=== PATIENT | male | born 1960 | race Caucasian/White ===

== ENCOUNTER 2017-01-25 10:55 | Inpatient (IN) | payer BC ==
[2017-01-25] MEDS ORDERED: NS 0.9% 1000 ML* 1,000 ML IV ONE (11:13)
[2017-01-25] MEDS ORDERED: Ondansetron INJ* 2 MG/ML VIAL IV ONE (11:13)
[2017-01-25] MEDS ORDERED: Morphine INJ* 4 MG/ML 1 ML CARPUJECT IV ONE (11:13)
[2017-01-25 11:54] LABS: Add Diff/Slide Review? Slide Review Added; Comments Flag Yes; Hematocrit 37 % (42-52); Hemoglobin 12.5 g/dl (14.0-18.0); Mean Corpuscular HGB Conc 34 g/dl (31-36); Mean Corpuscular Hemoglobin 35 pg (27-31); Mean Platelet Volume 7 um3 (7.4-10.4); Red Blood Count 3.53 10^6/ul (4.0-5.4); Red Cell Distribution Width 14 % (10.5-15); White Blood Count 10.4 10^3/ul (3.5-10.8)
--- NOTE | 2017-01-25 12:03 | RAD ---
INDICATION: Abdominal pain. COMPARISON: Comparison is made with a prior CT of the abdomen and pelvis from January 20, 2013. TECHNIQUE: Frontal supine films of the abdomen were obtained. FINDINGS: The small bowel and colon appear nondistended. No significant abnormal calcifications are seen. There are bridging osteophytes in the mid and lower lumbar spine. There is moderate to severe osteoarthritic change in the hips. IMPRESSION: NO EVIDENCE FOR OBSTRUCTION.
[2017-01-25 12:12] LABS: Albumin 3.8 g/dL (3.2-5.2); BUN/Creatinine Ratio 18.4 (8-20); Calcium 10.1 mg/dL (8.6-10.3); EGFR African American 42.6 (>60); EGFR Non-African American 33.1 (>60); Globulin 2.8 g/dL (2-4); Magnesium 2.6 mg/dL (1.9-2.7); Potassium 4.5 mmol/L (3.5-5.0); Total Bilirubin 0.4 mg/dL (0.2-1.0); Total Protein 6.6 g/dL (6.4-8.9)
[2017-01-25] MEDS ORDERED: fentaNYL* 50 MCG/ML 2 ML VIAL (100 MCG VIAL) IV SLOW PU ONE ×2 (12:27→14:31)
[2017-01-25 12:52] LABS: Mean Corpuscular Volume 106 fL (80-94)
[2017-01-25 12:54] LABS: C Reactive Protein 49.39 mg/L (< 5.00)
--- NOTE | 2017-01-25 12:58 | RAD ---
INDICATION: Abdominal pain. COMPARISON: Comparison is made with a prior CT of the abdomen and pelvis from January 20, 2013. TECHNIQUE: Multiple real-time images of the right upper quadrant were obtained. FINDINGS: The gallbladder appear normal. No gallbladder wall thickening or pericholecystic fluid is present. No intra or extrahepatic ductal distention is present. The liver is normal in size and increased in echogenicity which correlates with fatty infiltration on the prior CT study. No significant focal abnormality is seen. The pancreas is partially obscured by overlying bowel gas. Note is made of a small amount of ascites along the inferior margin of the liver. The right kidney is normal in size without evidence for hydronephrosis. IMPRESSION: 1. SMALL AMOUNT OF ASCITES. 2. HEPATIC STEATOSIS.
[2017-01-25] MEDS ORDERED: Iodixanol* (CONTRAST) 320 MG/ML 100 ML SDV IV ONE (14:35)
--- NOTE | 2017-01-25 15:18 | RAD ---
CLINICAL HISTORY: Diffuse abdominal pain COMPARISON: Ultrasound dated January 25, 2017, CT dated January 20, 2013 TECHNIQUE: Multiple contiguous axial CT scans were obtained of the abdomen and pelvis after the administration of intravenous contrast. Coronal and sagittal multiplanar reformations are submitted for review. Oral contrast was administered. Delayed images were obtained through the abdomen and pelvis. FINDINGS: LUNG BASES: There is a trace right pleural effusion LIVER: The liver is diffusely low in attenuation compared to the spleen. There are no focal hepatic parenchymal masses. BILE DUCTS: There is no intrahepatic or extrahepatic biliary dilatation. GALLBLADDER: The gallbladder is normal, without pericholecystic inflammatory change. PANCREAS: The pancreas is normal, without mass or ductal dilatation. SPLEEN: Normal in size and appearance. UPPER GI TRACT: Evaluation of the gastrointestinal tract is limited by incomplete gastric distention. There is mucosal thickening in the region of the gastric antrum and pylorus. SMALL BOWEL AND MESENTERY: The small bowel is normal in contour, course, and caliber. There is no obstruction or dilatation. COLON: There are multiple diverticula of the sigmoid colon. There is no pericolonic inflammatory change. ADRENALS: There is left adrenal nodule, stable from 2012 suggestive of an indolent lesion such as an adenoma. KIDNEYS: The kidneys are normal in shape, size, contour, and axis. There is no hydronephrosis or nephrolithiasis. BLADDER: The bladder is incompletely distended but is grossly normal. PELVIC ORGANS: The prostate gland is normal. The seminal vesicles are symmetric. AORTA: The aorta is normal. IVC: Unremarkable LYMPH NODES: There is no lymphadenopathy by size criteria. ABDOMINAL WALL: There is no evidence for abdominal wall hernia. BONES AND SOFT TISSUES: Degenerative changes are noted of the spine OTHER: There is a small amount of ascites. There is a moderate amount of free intraperitoneal gas. IMPRESSION: 1. MODERATE AMOUNT OF FREE INTRAPERITONEAL GAS, WITH A SMALL AMOUNT OF ASCITES, MOST CONSISTENT WITH PERFORATION OF A HOLLOW VISCUS. THE SOURCE OF PERFORATION IS UNCLEAR, THOUGH THERE IS MUCOSAL THICKENING IN THE REGION OF THE PYLORUS AND DIVERTICULOSIS OF THE LARGE BOWEL. PRELIMINARY FINDINGS WERE DISCUSSED WITH DR. CARABALLO AT APPROXIMATELY 3:12 PM ON 2016. 2. FATTY INFILTRATION OF LIVER. 3. TRACE RIGHT PLEURAL EFFUSION.
[2017-01-25] MEDS ORDERED: NS 0.9% 1000 ML* 2,000 ML IV ONE (15:22)
[2017-01-25] MEDS ORDERED: Midazolam* 1 MG/ML 2 ML VIAL (2 MG) ONE (16:03)
[2017-01-25] MEDS ORDERED: fentaNYL* 50 MCG/ML 2 ML VIAL (100 MCG VIAL) ONE ×5 (16:03→20:19)
[2017-01-25] MEDS ORDERED: Buffered Lidocaine 0.9% SYRIN* 5 ML/SYR SYRINGE INTRADERM ONE (16:09)
[2017-01-25 16:29] LABS: Urine Bilirubin Negative (Negative); Urine Glucose Negative (Negative); Urine Nitrite Negative (Negative)
[2017-01-25] MEDS ORDERED: Dexamethasone IV* 4 MG/ML 1 ML (4 MG) ONE (16:48)
[2017-01-25] MEDS ORDERED: Rocuronium* 10 MG/ML VIAL ONE (16:48)
[2017-01-25] MEDS ORDERED: Lidocaine 2% PF * 5 ML VIAL ONE (16:48)
[2017-01-25] MEDS ORDERED: Famotidine IV* 10 MG/ML 2 ML (20 mg) ONE (16:48)
[2017-01-25] MEDS ORDERED: Propofol* 10 MG/ML 20 ML BTL IV PUSH ONE (16:48)
[2017-01-25] MEDS ORDERED: Phenylephrine IV* 40 MCG/ML 10 ML SYRINGE ONE (17:01)
[2017-01-25] MEDS ORDERED: EPHEDrine (Pressors)* 50 MG/ML VIAL ONE (17:11)
[2017-01-25] MEDS ORDERED: Hetastarch in NS* 500 ML IV ONE (17:12)
--- NOTE | 2017-01-25 17:39 | HP ---
CC: [facility]; Radha Menon NP HISTORY AND PHYSICAL: DATE OF ADMISSION: 01/25/17 CHIEF COMPLAINT: Severe abdominal pain of sudden onset. HISTORY OF PRESENT ILLNESS: Mr. Mando Fowler is a 56-year-old gentleman with a history of hypertension, who awoke approximately at 1 o'clock early this morning with a sudden onset of upper abdominal pain that radiated up to his chest, back, and shoulders. He has never had discomfort like this. It was a very sudden onset. It was not associated with fevers, shakes, chills, nausea, or vomiting; however, he has been anorexic. He slowly he had some lower abdominal development of discomfort but the pain is mainly in the epigastric area. The pain did not improve. He presented to the emergency room earlier today. He was seen in the emergency room. He was noted to be afebrile with stable vital signs, although relative low blood pressure of 95. He had not taken his antihypertensives today. Laboratory values included a white blood cell count of 10,000 with a hemoglobin of 12 and MCV of 106. Platelet count of 225,000. Also noted was a decreased carbon dioxide of 19, the BUN and creatinine of 38 and 2.07. His lactic acid was 5.6 and C-reactive protein of 49. Lipase was 104. Total bilirubin 0.4. He underwent an ultrasound of his right upper quadrant which showed no significant findings other than a small amount of fluid along the right lateral border of the liver. In addition, one month ago the patient was given a steroid taper pack of methylprednisolone over 5 to 6 days for back and neck discomfort by his physician in [place]. In addition, he also takes Naprosyn daily for his arthritic pain. He subsequently underwent a CT scan of the abdomen and pelvis. I did review these images. This shows a moderate amount of free intraperitoneal air with some free intraperitoneal fluid. There was some thickening in the gastroduodenal area of the stomach as well as in the sigmoid colon. There was no abscess noted. There was no obvious contrast extravasation noted. He was resuscitated with fluids and a surgical consultation has been obtained. PAST MEDICAL HISTORY: 1. Hypertension. 2. History of alcohol abuse, but now he has been attempting to abstain. 3. Arthritis. 4. Macrocytic anemia. MEDICATIONS: Include: 1. Clonidine 0.2 mg b.i.d. 2. Folic acid 1 mg daily. 3. Hydrochlorothiazide 25 mg daily. 4. Metoprolol 50 mg daily. 5. Losartan 100 mg daily. 6. Naprosyn 5 mg b.i.d. 7. Centrum Silver. 8. Multivitamins. 9. Baby aspirin 81 mg daily. 10. Hydrocodone 5/325 one tablet daily for low back pain. SOCIAL HISTORY: He was a heavy drinker in the past and is now abstaining and under care. He has had several relapses, however, in the last 6 months. He smokes 3 or 4 cigarettes per day. He is . Presently, not working. REVIEW OF SYSTEMS: Cerebrovascular: He has never had any dizziness or visual disturbances. Cardiovascular: No chest pain or shortness of breath. Pulmonary : No wheezing or hemoptysis. GI: He has had problems with some fatty liver and has seen a minister assistant, Dr. Wheatley. I do not have these records, but a liver biopsy was not performed. He was told he does not have cirrhosis. PHYSICAL EXAMINATION GENERAL: He is a slender, well-developed, well-nourished male who appears to be uncomfortable. He is lying still in the gurney without movement. VITAL SIGNS: Temperature 98.1, pulse 63, blood pressure 95/57, respirations 18. HEENT: His sclerae is anicteric. Oral mucosa is slightly dry. His trachea was midline. LUNGS: Clear to auscultation with diminished breath sounds at the bases. HEART: Regular rate and rhythm without murmurs, rubs, or gallops. ABDOMEN: Distended and firm. He has no prior surgical incisions. There are no hernias. He has diminished bowel sounds throughout. He has a generalized peritoneal irritation throughout with rebound and guarding. EXTREMITIES: Showed no cyanosis or edema. PSYCHIATRIC: He is awake, alert, and oriented x3. He appears to have normal judgment and insight. IMAGING: I did review the CAT scan images. IMPRESSION: Peritonitis with pneumoperitoneum and free intraabdominal fluid noted on CT scan. This was of abrupt onset at 0100 last night. The patient has been on both steroids and nonsteroidal pain medications for chronic low back and hip discomfort. He has not been on any proton pump inhibitors. I suspect this to be perforation of the stomach or duodenum, less likely diverticular disease by the history and findings on the CT scan. PLAN: 1. I have discussed the history and physical exam and the findings on the CT scan with both the patient and his . I recommended emergent diagnostic laparoscopy with possible laparotomy for treatment of perforated hollow viscus. 2. We will continue with aggressive IV resuscitation. 3. He will be given broad-spectrum IV antibiotics. 4. He will be kept n.p.o. I discussed the procedure with the patient and his in detail the risks, but not limited to bleeding, infection, intraabdominal abscess formation, injury to peritoneal and retroperitoneal structures, possibility of an open procedure. We will start with a laparoscopic approach to identify the source of perforation and possibly this may be repaired this way, but there is a possibility it may require open exploratory laparotomy. In addition to risks of general anesthesia, injury to peritoneal and retroperitoneal structures, infection, recovery times, and hospital stays were also briefly discussed. We will proceed emergently today. [id number] #: [id number] MTDD
[2017-01-25] MEDS ORDERED: Desflurane* 240 ML INH ONE (17:46)
--- NOTE | 2017-01-25 18:55 | ED ---
Krista Delaney Thomas, scribed for Kuldeep Du MD on 01/25/17 at 1113 . Abdominal Pain/Male - HPI Summary HPI Summary: The pt is a 56 y/o M presenting to the ED c/o diffuse abd pain that woke him up this morning at 05:00. The pain is rated 10/10. The pain is aggravated by palpation and is alleviated by nothing. 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 Pt additionally c/o pain across his shoulder blades. Pt denies N/V/ D, constipation. He has never had this pain before. He is on Clonidine, HCTZ, metoprolol, losartan, naproxen, hydrocodone, and ASA 81. He is scheduled for hip surgery in two weeks. His last BM was last night. PMHx: negative for abdominal disease. SHx: current smoker and he is a recovering alcoholic. FHx: positive for gallbladder disease. He is accompanied by his . - History of Current Complaint Chief Complaint: EDAbdPain Stated Complaint: ABD/SHOULDER PAIN Time Seen by Provider: 01/25/17 11:07 Hx Obtained From: Patient, Family/Glass Cutter Hand - is present Onset/Duration: Sudden Onset, Lasting Hours - onset this AM at 05:00 Timing: Constant Severity Currently: Severe Pain Intensity: 10 Pain Scale Used: 0-10 Numeric Location: Diffuse Radiates: No Aggravating Factor(s): Nothing Alleviating Factor(s): Nothing Associated Signs And Symptoms: Positive: Other - POS: pain across shoulder blades. Negative: Constipation, Nausea, Vomiting, Diarrhea - Allergies/Home Medications Allergies/Adverse Reactions: Allergies Allergy/AdvReac Type Severity Reaction Status Date / Time No Known Allergies Allergy Verified 01/20/13 18:35 Home Medications: Home Medications Aspirin [Aspirin Adult Low Strengt] 81 mg PO 01/25/17 [History] Cetirizine* [ZyrTEC 10 MG TAB*] 10 mg PO DAILY 01/25/17 [History Confirmed 01/25] Clonidine HCl [Catapres 0.2 MG TAB] 0.2 mg PO BID 01/25/17 [History Confirmed ] Folic Acid 1 mg PO DAILY 01/25/17 [History Confirmed 01/25/17] HYDROcodone/ACETAMIN 5-325 MG* [[place] 5-325 TAB*] 1 tab PO DAILY 01/25/17 [ History Confirmed 01/25/17] Losartan TAB* [Cozaar TAB*] 100 mg PO DAILY 01/25/17 [History Confirmed 01/25/17 ] Magnesium Oxide [Magnesium] 250 mg PO BID 01/25/17 [History Confirmed 01/25/17] Metoprolol Succinate [Toprol Xl] 50 mg PO DAILY 01/25/17 [History Confirmed ] Multiple Vitamins W/ Minerals [Centrum Silver 50+Men] 01/25/17 [History] Naproxen [Naprosyn 500 mg] 500 mg PO BID 01/25/17 [History Confirmed 01/25/17] Thiamine HCl [Vitamin B-1] 100 mg PO DAILY 01/25/17 [History Confirmed 01/25/17] PMH/Surg Hx/FS Hx/Imm Hx Previously Healthy: No Endocrine/Hematology History: Denies: Hx Diabetes Cardiovascular History: Reports: Hx Hypertension Denies: Hx Congestive Heart Failure - Surgical History Surgery Procedure, Year, and Place: None. Infectious Disease History: Denies: Traveled Outside the [place] in Last 30 Days - Family History Known Family History: Positive: Other - POS: gallbladder disease - Social History Alcohol Use: None Alcohol Amount: No alcohol use currently, although he is a recovering alcoholic. Hx Tobacco Use: Yes Smoking Status (MU): Current Every Day Smoker Review of Systems Negative: Fever Positive: Abdominal Pain - diffuse abd pain sudden onset this AM at 05:00. Negative: Vomiting, Diarrhea, Nausea, Other - NEG: constipation Positive: Other - POS: pain across shoulder blades All Other Systems Reviewed And Are Negative: Yes Physical Exam - Summary Physical Exam Summary: VITAL SIGNS: Reviewed. GENERAL: Patient is a well-developed and nourished male who is lying comfortable in the stretcher. ~Patient is not in any acute respiratory distress. HEAD AND FACE: Normocephalic and atraumatic. EYES: PERRLA, EOMI x 2, No injected conjunctiva. EARS: Hearing grossly intact. Ear canals and tympanic membranes are WNL. MOUTH: Oropharynx within normal limits. NECK: Supple, trachea is midline, no adenopathy, no JVD. CHEST: Symmetric, no tenderness at palpation LUNGS: Clear to auscultation bilaterally. No wheezing or crackles. CVS: RRR, S1 and S2 present, no murmurs or gallops appreciated. ABDOMEN: He has diffuse abdominal tenderness. There is no rebound. Positive guarding. No signs of distention. Positive bowel sounds. No rebound nand no masses palpated. No abdominal bruit or pulsations. EXTREMITIES: FROM in all major joints, no edema, no cyanosis or clubbing. NEURO: Alert and oriented x 3. No acute neurological deficits. Speech is normal. SKIN: Dry and warm Triage Information Reviewed: Yes Vital Signs On Initial Exam: Initial Vitals Temp Pulse Resp BP Pulse Ox 96.6 F 74 12 95/57 98 01/25/17 10:55 01/25/17 10:55 01/25/17 10:55 01/25/17 10:55 01/25/17 10:55 Vital Signs Reviewed: Yes Diagnostics - Vital Signs Vital Signs Temp Pulse Resp BP Pulse Ox 01/25/17 10:55 96.6 F 74 12 95/57 98 - Laboratory Lab Results: Lab Results 01/25/17 01/25/17 01/25/17 Range/Units 11:40 11:40 11:40 WBC 10.4 (3.5-10.8) 10^3/ul RBC 3.53 L (4.0-5.4) 10^6/ul Hgb 12.5 L (14.0-18.0) g/dl Hct 37 L (42-52) % MCV 106 H (80-94) fL MCH 35 H (27-31) pg MCHC 34 (31-36) g/dl RDW 14 (10.5-15) % Plt Count 225 (150-450) 10^3/ul MPV 7 L (7.4-10.4) um3 Neut % (Auto) 82.2 (38-83) % Lymph % (Auto) 3.7 L (25-47) % [place] % (Auto) 13.9 H (1-9) % Eos % (Auto) 0 (0-6) % Baso % (Auto) 0.2 (0-2) % Absolute Neuts (auto) 8.5 H (1.5-7.7) 10^3/ul Absolute Lymphs (auto) 0.4 L (1.0-4.8) 10^3/ul Absolute Monos (auto) 1.4 H (0-0.8) 10^3/ul Absolute Eos (auto) 0 (0-0.6) 10^3/ul Absolute Basos (auto) 0 (0-0.2) 10^3/ul Absolute Nucleated RBC 0 10^3/ul Nucleated RBC % 0 Sodium 138 (133-145) mmol/L Potassium 4.5 (3.5-5.0) mmol/L Chloride 101 (101-111) mmol/L Carbon Dioxide 19 L (22-32) mmol/L Anion Gap 18 H (2-11) mmol/L BUN 38 H (6-24) mg/dL Creatinine 2.07 H (0.67-1.17) mg/dL Est GFR ( Amer) 42.6 (>60) Est GFR (Non-Af Amer) 33.1 (>60) BUN/Creatinine Ratio 18.4 (8-20) Glucose 95 (70-100) mg/dL Lactic Acid (0.5-2.0) mmol/L Calcium 10.1 (8.6-10.3) mg/dL Magnesium 2.6 (1.9-2.7) mg/dL Total Bilirubin 0.40 (0.2-1.0) mg/dL AST 48 H (13-39) U/L ALT 25 (7-52) U/L Alkaline Phosphatase 76 (34-104) U/L Troponin I 0.00 (<0.04) ng/mL C-Reactive Protein 49.39 H (< 5.00) mg/L B-Natriuretic Peptide 71 ( - 100) pg/mL Total Protein 6.6 (6.4-8.9) g/dL Albumin 3.8 (3.2-5.2) g/dL Globulin 2.8 (2-4) g/dL Albumin/Globulin Ratio 1.4 (1-3) Amylase 73 (29-103) U/L Lipase 104 H (11.0-82.0) U/L Urine Color Urine Appearance Urine pH (5-9) Ur Specific [place] (1.010-1.030) Urine Protein (Negative) Urine Ketones (Negative) Urine Blood (Negative) Urine Nitrate (Negative) Urine Bilirubin (Negative) Urine Urobilinogen (Negative) Ur Leukocyte Esterase (Negative) Urine Glucose (Negative) 01/25/17 01/25/17 Range/Units 11:40 14:25 WBC (3.5-10.8) 10^3/ul RBC (4.0-5.4) 10^6/ul Hgb (14.0-18.0) g/dl Hct (42-52) % MCV (80-94) fL MCH (27-31) pg MCHC (31-36) g/dl RDW (10.5-15) % Plt Count (150-450) 10^3/ul MPV (7.4-10.4) um3 Neut % (Auto) (38-83) % Lymph % (Auto) (25-47) % [place] % (Auto) (1-9) % Eos % (Auto) (0-6) % Baso % (Auto) (0-2) % Absolute Neuts (auto) (1.5-7.7) 10^3/ul Absolute Lymphs (auto) (1.0-4.8) 10^3/ul Absolute Monos (auto) (0-0.8) 10^3/ul Absolute Eos (auto) (0-0.6) 10^3/ul Absolute Basos (auto) (0-0.2) 10^3/ul Absolute Nucleated RBC 10^3/ul Nucleated RBC % Sodium (133-145) mmol/L Potassium (3.5-5.0) mmol/L Chloride (101-111) mmol/L Carbon Dioxide (22-32) mmol/L Anion Gap (2-11) mmol/L BUN (6-24) mg/dL Creatinine (0.67-1.17) mg/dL Est GFR ( Amer) (>60) Est GFR (Non-Af Amer) (>60) BUN/Creatinine Ratio (8-20) Glucose (70-100) mg/dL Lactic Acid 5.6 H* (0.5-2.0) mmol/L Calcium (8.6-10.3) mg/dL Magnesium (1.9-2.7) mg/dL Total Bilirubin (0.2-1.0) mg/dL AST (13-39) U/L ALT (7-52) U/L Alkaline Phosphatase (34-104) U/L Troponin I (<0.04) ng/mL C-Reactive Protein (< 5.00) mg/L B-Natriuretic Peptide ( - 100) pg/mL Total Protein (6.4-8.9) g/dL Albumin (3.2-5.2) g/dL Globulin (2-4) g/dL Albumin/Globulin Ratio (1-3) Amylase (29-103) U/L Lipase (11.0-82.0) U/L Urine Color Yellow Urine Appearance Clear Urine pH 5.0 (5-9) Ur Specific [place] 1.017 (1.010-1.030) Urine Protein Negative (Negative) Urine Ketones 1+ H (Negative) Urine Blood Negative (Negative) Urine Nitrate Negative (Negative) Urine Bilirubin Negative (Negative) Urine Urobilinogen Negative (Negative) Ur Leukocyte Esterase Negative (Negative) Urine Glucose Negative (Negative) Result Diagrams: 01/25/17 11:40 01/25/17 11:40 Lab Statement: Any lab studies that have been ordered have been reviewed, and results considered in the medical decision making process. - Radiology XR Abdo Xray Interpretation: No Acute Changes - No evidence for obstruction. ED physician has reviewed this report and agrees. Radiology Interpretation Completed By: Radiologist - CT CT Abd/Pel CT Interpretation: Positive (See Comments) - 1. MODERATE AMOUNT OF FREE INTRAPERITONEAL GAS, WITH A SMALL AMOUNT OF ASCITES, MOST CONSISTENT WITH PERFORATION OF A HOLLOW VISCUS. THE SOURCE OF PERFORATION IS UNCLEAR, THOUGH THERE IS MUCOSAL THICKENING IN THE REGION OF THE PYLORUS AND DIVERTICULOSIS OF THE LARGE BOWEL. 2. FATTY INFILTRATION OF LIVER. 3. TRACE RIGHT PLEURAL EFFUSION ED physician has reviewed this report and agrees. CT Interpretation Completed By: Radiologist - EKG 13:06 Cardiac Rate: NL - 68 BPM EKG Interpretation: Sinus rhythm. No ST elevations. Normal [place]. - Additional Comments Diagnostic Additional Comments: Gallbladder US. Interpreted by radiologist. Impression: 1. SMALL AMOUNT OF ASCITES. 2. HEPATIC STEATOSIS. ED physician has reviewed this report and agrees. Abdominal Pain Fem Course/Dx - Course Assessment/Plan: The pt is a 56 y/o M presenting to the ED c/o diffuse abd pain that woke him up this morning at 05:00. The pain is rated 10/10. The pain is aggravated by palpation and is alleviated by nothing. 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 Pt additionally c/o pain across his shoulder blades. Pt denies N/V/D, constipation. He has never had this pain before. He is on Clonidine, HCTZ, metoprolol, losartan, naproxen, hydrocodone, and ASA 81. He is scheduled for hip surgery in two weeks. PMHx: negative for abdominal disease. SHx: current smoker and he is a recovering alcoholic. FHx: positive for gallbladder disease. He is accompanied by his . Test results show a slight anemia, [id number] renal failure, lactic acid 5.6, and CRP of 49. UA is negative. Initially, I order an XR of the abdomen to rule out perforation. However, this came back negative for free air. Since the patient c/omplains of RUQ and LUQ pain, I decided to do an US to rule out cholecystitis. US was negative. Therefore, I decided to do a CT of the abdomen and pelvis. It shows 1. MODERATE AMOUNT OF FREE INTRAPERITONEAL GAS, WITH A SMALL AMOUNT OF ASCITES , MOST. CONSISTENT WITH PERFORATION OF A HOLLOW VISCUS. THE SOURCE OF PERFORATION IS UNCLEAR,. THOUGH THERE IS MUCOSAL THICKENING IN THE REGION OF THE PYLORUS AND DIVERTICULOSIS OF THE. LARGE BOWEL. 2. FATTY INFILTRATION OF LIVER. 3. TRACE RIGHT PLEURAL EFFUSION. In the Ed course the patient was given IV fluids, morphine for the pain, and multiples doses of fentanyl. Since the patient has a discus perforation, I discussed the case with Dr. Torres who came to the ED to assess the patient. I also gave the patient a dose of Zosyn. Dr. Torres accepts the patient for admission for further workup and management. He is hemodynamically stable and alert and oriented x3. - Diagnoses Differential Diagnosis/HQI/PQRI: Bowel Obstruction, Constipation, Diverticulitis , Ischemic Bowel, Renal Colic Provider Diagnoses: Perforation of viscus - Provider Notifications Discussed Care Of Patient With: Gordon Torres Time Discussed With Above Provider: 15:00 Instructed by Provider To: Other - Dr. Torres, surgery, came to the ED to assess the patient. He accepts the patient for admission. Discharge - Discharge Plan Condition: Fair Disposition: ADMITTED TO [facility] Discharge Disposition Comment: By Dr. Torres. The documentation as recorded by the Krista geronimo Thomas accurately reflects the service I personally performed and the decisions made by me, Kuldeep Du MD.
[2017-01-25] MEDS ORDERED: Ondansetron INJ* 2 MG/ML VIAL IV PRN ×2 (18:56→20:00)
[2017-01-25] MEDS ORDERED: HYDROmorphone INJ* 1 MG/ML CARPUJECT SYRINGE IV PRN (18:56)
[2017-01-25] MEDS ORDERED: fentaNYL* 50 MCG/ML 2 ML VIAL (100 MCG VIAL) IV PRN (18:56)
[2017-01-25] MEDS ORDERED: PROCHLORPERAZINE INJ 5 MG/ML 2 ML VIAL IV PRN (18:56)
[2017-01-25] MEDS ORDERED: DiMENhydriNATE IV* 50 MG/ML VIAL IV PUSH PRN (18:56)
[2017-01-25] MEDS ORDERED: Ondansetron INJ* 2 MG/ML VIAL ONE (19:35)
--- NOTE | 2017-01-25 19:51 | PN ---
Progress Note - Progress Note Date of Service: 01/25/17 Note: Brief Operative Note: Pre-op and Postop Dx: perforated duodenal ulcer Procedure: laparoscopic alondra patch repair of perf'd duodenal ulcer Anesthesia: GET Surgeon: Melissa Asst: KEVIN Fair Fluids: 2400 ml RL; 500 ml Hextend EBL: < 100 ml Drains: 1 TJ drain Specimen: none Findings: dictated
[2017-01-25] MEDS ORDERED: Acetaminophen SUPP* 650 MG SUPP PR PRN (19:58)
[2017-01-25] MEDS ORDERED: Pantoprazole IV* 40 MG IV SCH (20:00)
[2017-01-25] MEDS ORDERED: Metoprolol Tartrate IV* 1 MG/ML 5 ML VIAL IV PRN (20:08)
[2017-01-25] MEDS ORDERED: HYDROmorphone INJ* 1 MG/ML CARPUJECT SYRINGE ONE (20:19)
[2017-01-25] MEDS ORDERED: Metoprolol Tartrate IV* 1 MG/ML 5 ML VIAL IV SCH (21:00)
[2017-01-25] MEDS ORDERED: LORazepam INJ* 2 MG/ML 1 ML VIAL IV PUSH SCH (21:00)
[2017-01-25] MEDS: NS 0.9% 1000 ML* 1,000 ML IV SCH (22:31)
--- NOTE | 2017-01-25 22:51 | CONS ---
CC: Grazyna Menon NP; Dr. Torres * CONSULTATION REPORT: DATE OF CONSULT: 01/25/17 PRIMARY CARE PROVIDER: Grazyna Menon NP. REQUESTING PHYSICIAN FOR CONSULT: Dr. Gordon Torres. MY ATTENDING PHYSICIAN WHILE IN THE HOSPITAL: Dr. Josselin Ramsey (report dictated by Chace Colindres NP). REASON FOR MEDICAL CONSULTATION: Evaluation and management of comorbid medical conditions. HISTORY OF PRESENT ILLNESS: Mr. Fowler is a 56-year-old male patient. He has a history of hypertension. He has a history of CASIMIRO, no longer wearing a mask. He has a history of osteoarthritis, EtOH abuse, and a history of anemia. He came into the ER today and said that around 1 o'clock in the morning, he had sudden onset of upper abdominal pain that radiated to his chest and back. He said it was very sudden. Denied having any fevers or chills. No nausea or vomiting. However, he has been anorexic. He says that he had been having some intermittent epigastric discomfort. He does state that he was recently on a Medrol Dosepak for his back and neck discomfort. In addition to this, also takes naproxen daily for his arthritic pain. He subsequently came into the ER. He was evaluated and ultimately found the CT scan, which showed free amount of intraperitoneal air and there was thickening near the gastroduodenal area of the stomach as well as the sigmoid colon. He presented to the emergency room. He was taken to the OR emergently and we were asked to evaluate in consult. He was evaluated in the PACU. He says his pain is about a 3/10 in the epigastric area. He says he is feeling better than when he came in. He denies having any chest pain or shortness of breath. He denies feeling lightheaded. He denies having any headache and he says that he does not feel like he is nauseated. Because of his medical complexity, we were asked to evaluate in consult. PAST MEDICAL HISTORY: Significant for: 1. Hypertension. 2. EtOH abuse. 3. Anemia. 4. Arthritis. 5. CASIMIRO. PAST SURGICAL HISTORY: This is his first surgery today. He had a laparoscopic Levon patch repair of a perforated duodenal ulcer. MEDICATIONS: His home meds according to the list that he provided includes: 1. Thiamine 100 mg daily. 2. Naproxen 500 mg p.o. b.i.d. 3. Multivitamin one tablet daily. 4. Toprol-XL 50 mg daily. 5. Magnesium 250 mg p.o. b.i.d. 6. Cozaar 100 mg daily. 7. Hydrochlorothiazide 25 mg daily. 8. [place] one tablet p.o. daily. 9. Folic acid 1 mg daily. 10. Catapres 0.2 mg p.o. b.i.d. 11. Cetirizine 10 mg daily. 12. Aspirin 81 mg daily. ALLERGIES TO MEDICATIONS: Include LISINOPRIL and ATENOLOL. FAMILY HISTORY: His mother has a history of dementia. Father had a history of DE, CAD, CVA. He is . SOCIAL HISTORY: He used to be a daily drinker up until May. He has had occasional episodes where he has relapsed and had some binge drinking episodes. Last drink was a week ago, last . He does smoke about 3 to 4 cigarettes a day. He has been smoking roughly for about 30 years. Denies any recreational drug abuse. He is , with children. Surrogate decision maker is his . REVIEW OF SYSTEMS: There is no documented fever. He denied having any significant weight change. There was no double vision. There is no ear discharge. Denied having any rhinorrhea. No sore throat. No thyroid enlargement. Denied having any chest pain. There is no orthopnea. There is no nocturnal dyspnea. He does admit to having abdominal pain. He denies having any nausea or vomiting. No dysuria, no frequency. No loss of consciousness. No pruritus and no skin ulcerations. Review of 14 systems completed, all others negative. PHYSICAL EXAM: Vital Signs: Blood pressure 174/91, pulse of 99, respirations 18, O2 sat 97% on 2 L, temperature 97.9. General: At this time, Mr. Fowler is a 56- year-old male patient who appears to be well nourished, well developed. He is sitting in the PACU, but he does not appear to be in acute distress. HEENT: Head is atraumatic. Eyes: Sclerae anicteric. Neck: Supple. Throat: Oral mucosa appears to be dry. No oropharyngeal erythema. Heart: Sounds S1 , S2. Regular rate and rhythm. His heart rates around 90 to 95. His lungs clear to auscultation bilaterally. No wheezes, rales, or rhonchi. Abdomen was mildly distended. He had bowel sounds that were hypoactive and he is tender, particularly around the epigastric area and near the incision sites. There is a TJ drain and dressing noted. His abdomen is clean, dry, and intact. Extremities: He had no peripheral edema. He is able to move all 4 extremities with 5/5 strength. Neurologically, he is awake, alert, and oriented x3. No gross focal deficits. His skin is intact. DIAGNOSTIC STUDIES/LABORATORY DATA: Preop revealed WBC of 10.4, RBC of 3.53, hemoglobin 12.5, hematocrit 37, and platelet count of 225. Sodium 138, potassium 4.5, chloride of 101, bicarb of 19, BUN 38, creatinine of 2.07, last creatinine was 1.35, glucose 95, lactic 5.6, repeat pending. Calcium 10.1, mag 2.6, total bili 0.4, AST 48, ALT 25, alk phos 79, troponin 0. BNP 71, albumin 3.8, lipase 104. He had a UA, which was negative. His preop CT showed a moderate amount of free intraperitoneal gas with a small amount of ascites, most consistent with perforation of hollow viscus. The source of perforation is unclear, though there is mucosal thickening in the region of the pylorus and diverticulosis of the large bowel, fatty infiltration of the liver. He had a gallbladder ultrasound, which revealed small amount of ascites, hepatic steatosis. Abdominal x-ray showed no evidence for obstruction. EKG today showed normal sinus rhythm, rate of 68. No ST elevations or T wave inversions. Old medical records were reviewed. ASSESSMENT AND PLAN: Mr. Fowler is a 56-year-old male patient coming into the ER today with complaints of abdominal pain, found to have a perforated viscus, taken to the OR emergently for repair, which he underwent. Recommendations at this point are: 1. Status post laparoscopic repair of perforated ulcer. We will defer the management to Dr. Torres and his team. 2. Hypertension. I am going to go ahead and put him on standing IV Lopressor 5 mg every 6 hours. We will see how this controls his blood pressure. If need be, we can add on a second agent such as hydralazine or put him on his clonidine patch, but for right now we will just continue on the beta-jin. 3. History of EtOH abuse. At this point, I will go ahead and put him on the [place] protocol and put him on IV thiamine and folic acid. 4. Acute renal failure. Again, I suspect this is probably prerenal and the fact that he was on NSAIDs and he was taking hydrochlorothiazide and losartan. All probably could be contributing. My plan is to go ahead and get a FENa and does not appear to have any obstructive uropathy given the CT scan. I will hydrate him and repeat the labs in the morning. If need be, we can get a Nephrology consult if it does not improve. 5. Anemia. We will follow his H and H closely and transfuse, probably secondary to EtOH use. 6. Arthritis. Again, we will hold off on any more NSAIDs, Tylenol would be the drug of choice for him. 7. Obstructive sleep apnea. I did order a continuous pulse ox for 24 hours postop. 8. Perforated viscus. Again, I suspect most likely he had an ulcer that perforated secondary to the prednisone and the drinking that he did the week prior and he probably had a ____ formation. I would recommend PPI therapy, which has been started b.i.d. and he may need outpatient followup with GI and obviously surgery for this. 9. DVT prophylaxis. Defer to the primary team. 10. Code status. Full code. 11. Fluids, electrolytes, and nutrition. I would recommend a heart healthy diet when he is able. Further dietary management will be maintained by Surgery. TIME SPENT: On the consult was 60 minutes, greater than half that time was spent [id number] with the patient obtaining my history and physical, the other half the time was spent going over the plan of care with the patient and implementing the plan of care. I did discuss the plan of care with my attending, Dr. Ramsey; she is in agreement. CHACE COLINDRES, BRUNO [id number]/CPS #: [id number] MTDD
[2017-01-25] MEDS: HYDROmorphone INJ* 1 MG/ML CARPUJECT SYRINGE IV SLOW PU PRN (22:54)
[2017-01-25] MEDS: Pantoprazole IV* 40 MG IV SCH (23:06)
[2017-01-25] MEDS ORDERED: Folic Acid IV* 1 MG/0.2 ML SYRINGE IV SCH (23:45)
[2017-01-26] MEDS: Folic Acid IV* 50 MG/10 ML VIAL IV SCH ×2 (01:02→20:03)
[2017-01-26 01:40] LABS: Urine Bacteria Absent (Absent); Urine Bilirubin Negative (Negative); Urine Glucose Negative (Negative); Urine Nitrite Negative (Negative)
[2017-01-26] MEDS: HYDROmorphone INJ* 1 MG/ML CARPUJECT SYRINGE IV SLOW PU PRN ×5 (03:05→20:03)
[2017-01-26] MEDS: Metoprolol Tartrate IV* 1 MG/ML 5 ML VIAL IV SCH ×4 (04:57→22:49)
[2017-01-26] MEDS: NS 0.9% 1000 ML* 1,000 ML IV SCH ×3 (06:03→22:48)
[2017-01-26 06:16] LABS: Hematocrit 31 % (42-52); Hemoglobin 10.6 g/dl (14.0-18.0); Mean Corpuscular HGB Conc 34 g/dl (31-36); Mean Corpuscular Hemoglobin 36 pg (27-31); Mean Platelet Volume 8 um3 (7.4-10.4); Red Blood Count 2.94 10^6/ul (4.0-5.4); Red Cell Distribution Width 14 % (10.5-15); White Blood Count 10.4 10^3/ul (3.5-10.8)
[2017-01-26 06:26] LABS: Comments Flag Yes
[2017-01-26 06:27] LABS: Mean Corpuscular Volume 106 fL (80-94)
[2017-01-26 06:50] LABS: BUN/Creatinine Ratio 20.3 (8-20); Calcium 7.9 mg/dL (8.6-10.3); EGFR African American 52.8 (>60)
[2017-01-26 07:09] LABS: Potassium 5.5 mmol/L (3.5-5.0)
--- NOTE | 2017-01-26 08:22 | PN ---
Progress Note - Progress Note Date of Service: 01/26/17 SOAP: Subjective: Feels much better-pain is adequately controlled No nausea or SOB Wants to eat Objective: Temp Pulse Resp BP Pulse Ox 98.6 F 68 17 148/89 100 01/26/17 05:58 01/26/17 05:58 01/26/17 07:05 01/26/17 05:58 01/26/17 05:58 Intake & Output 01/24/17 01/25/17 01/26/17 01/27/17 06:59 06:59 06:59 06:59 Intake Total 5245 Output Total 1290 Balance 3955 Weight 187 lb Intake: IV Fluids 4745 NS (0.9%) 945 lr 2800 Oral 0 Plasma Expanders Amount 500 Output: NG Tube Drainage Amount 150 TJ #1 70 Urine 150 Brady 900 Residual 20 Brady 16 Fr 20 Other: Date of Last Bowel 01/24/17 Movement # Bowel Movements 0 PEX: Comfortable Lungs are clear Abd is distended and soft. Few bowel sounds are present. Incisions clean and dry TJ in place with serosanguinous drainage, non-bilious Extt without edema Laboratory Last Values WBC 10.4 10^3/ul (3.5-10.8) 01/26/17 05:48 RBC 2.94 10^6/ul (4.0-5.4) L 01/26/17 05:48 Hgb 10.6 g/dl (14.0-18.0) L 01/26/17 05:48 Hct 31 % (42-52) L 01/26/17 05:48 MCV 106 fL (80-94) H 01/26/17 05:48 MCH 36 pg (27-31) H 01/26/17 05:48 MCHC 34 g/dl (31-36) 01/26/17 05:48 RDW 14 % (10.5-15) 01/26/17 05:48 Plt Count 134 10^3/ul (150-450) L 01/26/17 05:48 MPV 8 um3 (7.4-10.4) 01/26/17 05:48 Neut % (Auto) 90.0 % (38-83) H 01/26/17 05:48 Lymph % (Auto) 3.3 % (25-47) L 01/26/17 05:48 [place] % (Auto) 6.7 % (1-9) 01/26/17 05:48 Eos % (Auto) 0 % (0-6) 01/26/17 05:48 Baso % (Auto) 0 % (0-2) 01/26/17 05:48 Absolute Neuts (auto) 9.3 10^3/ul (1.5-7.7) H 01/26/17 05:48 Absolute Lymphs (auto) 0.3 10^3/ul (1.0-4.8) L 01/26/17 05:48 Absolute Monos (auto) 0.7 10^3/ul (0-0.8) 01/26/17 05:48 Absolute Eos (auto) 0 10^3/ul (0-0.6) 01/26/17 05:48 Absolute Basos (auto) 0 10^3/ul (0-0.2) 01/26/17 05:48 Absolute Nucleated RBC 0 10^3/ul 01/26/17 05:48 Nucleated RBC % 0 01/26/17 05:48 Sodium 138 mmol/L (133-145) 01/26/17 05:48 Potassium 5.5 mmol/L (3.5-5.0) H 01/26/17 05:48 Chloride 109 mmol/L (101-111) 01/26/17 05:48 Carbon Dioxide 23 mmol/L (22-32) 01/26/17 05:48 Anion Gap 6 mmol/L (2-11) 01/26/17 05:48 BUN 35 mg/dL (6-24) H 01/26/17 05:48 Creatinine 1.72 mg/dL (0.67-1.17) H 01/26/17 05:48 Est GFR ( Amer) 52.8 (>60) 01/26/17 05:48 Est GFR (Non-Af Amer) 41.0 (>60) 01/26/17 05:48 BUN/Creatinine Ratio 20.3 (8-20) H 01/26/17 05:48 Glucose 157 mg/dL (70-100) H 01/26/17 05:48 Lactic Acid 1.7 mmol/L (0.5-2.0) 01/25/17 20:50 Calcium 7.9 mg/dL (8.6-10.3) L 01/26/17 05:48 Magnesium 2.6 mg/dL (1.9-2.7) 01/25/17 11:40 Total Bilirubin 0.40 mg/dL (0.2-1.0) 01/25/17 11:40 AST 48 U/L (13-39) H 01/25/17 11:40 ALT 25 U/L (7-52) 01/25/17 11:40 Alkaline Phosphatase 76 U/L (34-104) 01/25/17 11:40 Troponin I 0.00 ng/mL (<0.04) 01/25/17 11:40 C-Reactive Protein 49.39 mg/L (< 5.00) H 01/25/17 11:40 B-Natriuretic Peptide 71 pg/mL (-100) 01/25/17 11:40 Total Protein 6.6 g/dL (6.4-8.9) 01/25/17 11:40 Albumin 3.8 g/dL (3.2-5.2) 01/25/17 11:40 Globulin 2.8 g/dL (2-4) 01/25/17 11:40 Albumin/Globulin Ratio 1.4 (1-3) 01/25/17 11:40 Amylase 73 U/L (29-103) 01/25/17 11:40 Lipase 104 U/L (11.0-82.0) H 01/25/17 11:40 Urine Color Yellow 01/26/17 00:51 Urine Appearance Clear 01/26/17 00:51 Urine pH 5.0 (5-9) 01/26/17 00:51 Ur Specific [place] 1.038 (1.010-1.030) H 01/26/17 00:51 Urine Protein Negative (Negative) 01/26/17 00:51 Urine Ketones Trace (Negative) H 01/26/17 00:51 Urine Blood 1+ (Negative) H 01/26/17 00:51 Urine Nitrate Negative (Negative) 01/26/17 00:51 Urine Bilirubin Negative (Negative) 01/26/17 00:51 Urine Urobilinogen Negative (Negative) 01/26/17 00:51 Ur Leukocyte Esterase Negative (Negative) 01/26/17 00:51 Urine WBC (Auto) Absent (Absent) 01/26/17 00:51 Urine RBC (Auto) Trace(0-2/hpf) (Absent) 01/26/17 00:51 Urine Bacteria Absent (Absent) 01/26/17 00:51 Ur Random Creatinine 114.97 mg/dL 01/26/17 00:51 Ur Random Sodium 34 mmol/L 01/26/17 00:51 Urine Glucose Negative (Negative) 01/26/17 00:51 Assessment: POD#1 s/p laparoscopic repair of perforated duodenal ulcer ETO abuse HTN Plan: NGT suction D/C brady PPI BID sub q heparin WHAM protocol for etoh withdrawal Increase activity Follow K+ -recheck in AM, receiving no supplements. Appreciate hospitalist consult.
[2017-01-26] MEDS: Thiamine IV* 100 MG/ML 2 ML VIAL IV SCH (08:58)
[2017-01-26] MEDS: Heparin VIAL(*) 5000 UNITS/ML VIAL (FIVE THOUSAND) SUBCUT SCH ×3 (08:59→22:07)
[2017-01-26] MEDS: Pantoprazole IV* 40 MG IV SCH ×2 (08:59→20:04)
--- NOTE | 2017-01-26 12:23 | OP ---
CC: [facility]; Grazyna Menon NP * DATE OF OPERATION: 01/25/17 - ROOM #347 DATE OF : 56 SURGEON: Gordon Torres MD HAND PAINT MIXER: KEVIN Goetz ANESTHESIOLOGIST: Zaire Connor MD ANESTHESIA: General with local. PRE-OP DIAGNOSIS: Peritonitis with pneumoperitoneum. POST-OP DIAGNOSES: 1. Peritonitis with pneumoperitoneum. 2. Perforated duodenal ulcer. OPERATIVE PROCEDURE: Laparoscopic Levon patch of a perforated duodenal ulcer. ESTIMATED BLOOD LOSS: None recorded. IV FLUIDS: 2400 cc of crystalloid and 500 cc of hetastarch. SPECIMENS: None. DRAINS: A #1 TJ drain placed in the right upper quadrant of the abdominal cavity. WOUND CLASSIFICATION: IV. FINDINGS: The patient had a perforated duodenal ulcer overlying the bulb of the ulcer with significant contamination and fibrinous exudate of inflammatory response in all 4 quadrants of the abdomen. BRIEF HISTORY: Mr. Mando Fowler is a 56-year-old gentleman who does take nonsteroidals and had some oral steroid medication for arthritis in the last 4 to 6 weeks, presented to the emergency room after developing a sudden onset of severe upper abdominal pain radiating up to his chest and subsequently throughout his entire abdomen. He was noted to have peritonitis on physical exam and a CT scan done in the emergency room, which showed free intraabdominal fluid as well as pneumoperitoneum consistent with a perforated viscous of unknown location. He was seen emergently in surgical consultation. He was now being taken to the operating room for an emergent laparoscopy, possible exploratory laparotomy. The procedure was discussed with the patient and his in detail, the risks that are but not limited to bleeding, infection, intraabdominal abscess formation, injury to peritoneal and retroperitoneal structures, possibility of bowel resection with colostomy, possibility of an open procedure were all explained. The risk of general anesthesia, deep vein thrombosis, pulmonary embolism were discussed as well as recovery times and hospital stays. DESCRIPTION OF PROCEDURE: Written informed consent was obtained, the patient had been resuscitated with IV fluids and started on IV antibiotics in the emergency room. The abdomen was marked with indelible ink and he was taken to the operating room. Sequential compression devices and warming blanket were applied. General anesthesia was administered and a Upton catheter was inserted. The abdomen was prepped and draped in the usual sterile fashion. Time-out verification was completed. Initially a small vertical incision was made just above the umbilicus. The midline and peritoneal cavity was entered under direct vision. A 12-mm blunt port was inserted and the abdomen was insufflated to 15 mmHg. Under direct vision, a 5-mm port was placed in the left upper abdominal wall at the mid clavicular line several finger-breadths below the costal margin and a second port was placed in a similar fashion over on the right side. It was obvious that there was fibrinous purulent material throughout all 4 quadrants of the abdomen. This did not appear to be stool, more consistent with an upper GI source and a significant amount of saline was used to irrigate to improve visualization, especially up over the liver and the spleen. As mentioned, this did not appear to be more fibrin and bilious in nature. It was difficult to visualize the left lower quadrant but it did not appear that there was significant inflammatory response such as a diverticular perforation in this area. Attention was turned to the right upper quadrant. Once again there was omentum that was quite adherent to the liver and this was brought down with blunt dissection. The liver appear to be normal without evidence of cirrhosis or other abnormality. The gallbladder did not appear to be acutely inflamed, but was slightly whitish in color consistent with some surrounding inflammation. At this point, we were able to identify the stomach and its anterior portion did not appear to have abnormality, but just beyond what I felt was the pylorus , there was a small perforation in what appeared to be the duodenal bulb anteriorly, but it appeared to be no more than between 5 mm and 1 cm in size and it was not leaking content. We then placed a third 5-mm port in the right side of the abdominal wall, so we could retract the liver superiorly and obtained an improved visualization of the area. During this maneuver, I did create a small tear of the liver capsule, which was cauterized and packed with a 4x4 and this controlled the bleeding by the end of the case. We then proceeded to repair the perforation. Two separate 2-0 silk sutures were placed laparoscopically, one more superiorly and the second more inferiorly in a transverse orientation through the repair. The needles were left on the suture. I then used the LigaSure device to make a "tongue" of omentum, which was quite abundant and really under no tension and it fit right up nicely over the duodenum under the liver bed adjacent to the gallbladder. The omentum was then brought up to cover the perforation and we tied laparoscopically the two 2-0 silk sutures over the omentum fixing this down onto the ulcer, thus completing the Levon patch. The omentum appeared to be viable and in good position. Hemostasis was assured. Further irrigation was used as much as possible in the remainder of the abdomen up to 4 to 5 L. A #10 TJ drain was placed in the right upper quadrant overlying the omental patch, brought out through the lateral port site and sutured to the skin with 3- 0 Prolene suture. The port was removed under direct vision. There is no abdominal wall bleeding. The umbilical fascia was closed with interrupted 0 Polysorb suture. The skin at all remaining 4 incisions were approximated with subcuticular 4-0 Polysorb suture. Steri-Strips and sterile dressings were applied. The patient tolerated the procedure well, was taken to the recovery room in stable condition. [id number]/CPS #: [id number] MTDZaina
--- NOTE | 2017-01-26 13:46 | PN ---
Subjective Date of Service: 01/26/17 Interval History: HOSPITALIST PROGRESS NOTE Patient seen and examined at bedside. Abdominal pain is 5/10, but overall he feels improved. Denies nausea. No flatus or BM. Family History: Unchanged from Admission Social History: Unchanged from Admission Past Medical History: Unchanged from Admission Objective Active Medications: Acetaminophen (Tylenol Supp*) 650 mg NH Q4H PRN PRN Reason: mild pain or fever Folic Acid (Folvite Iv*) 1 mg IV BEDTIME [facility] Last Admin: 01/26/17 01:02 Dose: 2 ml Heparin Sodium (Porcine) (Heparin Vial(*)) 5,000 units SUBCUT Q8HR [facility] Last Admin: 01/26/17 08:59 Dose: 5,000 units Hydromorphone HCl (Dilaudid Iv*) 0.5 mg IV SLOW PU Q4H PRN PRN Reason: PAIN - MODERATE Last Admin: 01/25/17 22:54 Dose: 0.5 mg Hydromorphone HCl (Dilaudid Iv*) 1 mg IV SLOW PU Q4H PRN PRN Reason: PAIN - MODERATE TO SEVERE Last Admin: 01/26/17 12:13 Dose: 1 mg Lactated Ringer's (Lactated Ringers 1000 Ml Bag*) 1,000 mls @ 125 mls/hr IV PER RATE [facility] Sodium Chloride (Ns 0.9% 1000 Ml*) 1,000 mls @ 125 mls/hr IV PER RATE [facility] Last Admin: 01/26/17 06:03 Dose: 125 mls/hr Piperacillin Sod/Tazobactam (Sod 3.375 gm/ Sodium Chloride) 100 mls @ 25 mls/ hr IVPB Q8H [facility] Last Admin: 01/26/17 06:00 Dose: 25 mls/hr Lorazepam (Ativan Inj*) 0 - 3 mg IV PUSH .[facility] PROTOCOL [facility] PRN Reason: Protocol Metoprolol Tartrate (Lopressor Iv*) 5 mg IV 0500,1100,1700,2300 [facility] Last Admin: 01/26/17 12:13 Dose: 5 mg Ondansetron HCl (Zofran Inj*) 4 mg IV Q6H PRN PRN Reason: NAUSEA Pantoprazole Sodium (Protonix Iv*) 40 mg IV Q12H [facility] Last Admin: 01/26/17 08:59 Dose: 40 mg Thiamine HCl (Vitamin B1 Iv*) 100 mg IV DAILY [facility] Last Admin: 01/26/17 08:58 Dose: 100 mg Vital Signs 01/26/17 01/26/17 12:13 12:18 Temperature 98.1 F Pulse Rate 71 Respiratory 16 14 Rate Blood Pressure 153/83 (mmHg) O2 Sat by Pulse 96 Oximetry Oxygen Devices in Use Now: None Appearance: Pleasant gentleman sitting up in a recliner in NAD. Eyes: No Scleral Icterus Ears/Nose/Mouth/Throat: Mucous Membranes Moist Neck: Trachea Midline Respiratory: Symmetrical Chest Expansion and Respiratory Effort, Clear to Auscultation Cardiovascular: RRR - Normal S1 and S2 Extremities: No Edema Neurological: Alert and Oriented x 3, NL Muscle Strength and Tone Lines/Tubes/Other Access: Clean, Dry and Intact Naso-enteral Tube, Clean, Dry and Intact Peripheral IV Result Diagrams: 01/26/17 05:48 01/26/17 05:48 Assess/Plan/Problems-Billing Assessment: Mr. Fowler is a 56yo M with PMH of HTN, osteoarthritis, ETOH abuse, anemia, who presented to ED with c/o severe abdominal pain, found to have perforated duodenal ulcer. Hospitalist service consulted to assist management of comorbidities. - Patient Problems (1) Perforated duodenal ulcer Comment: - s/p laparoscopic Levon patch on 01/25/17. - Management as per Surgery. (2) HTN (hypertension) Comment: - Trending up. - Will continue Metoprolol IV, but if unable to use GI tract for some time, may add clonidine patch. (3) Alcohol abuse Comment: - No signs of alcohol withdrawal at this time. - Continue WAM protocol. (4) ROBERT (acute kidney injury) Comment: - Multifactorial in the setting of perforated ulcer, NSAIDs, HCTZ and ARB use. - Trending down. - Continue IVF. (5) Osteoarthritis Comment: - Patient states he has a hip replacement schedule at [place] on 02/09 - this will need to be postponed. (6) DVT prophylaxis Comment: - SQ heparin. (7) Full code status Status and Disposition: Hospitalist service will continue to follow with you.
[2017-01-27] MEDS: HYDROmorphone INJ* 1 MG/ML CARPUJECT SYRINGE IV SLOW PU PRN ×6 (00:21→21:43)
[2017-01-27] MEDS: Heparin VIAL(*) 5000 UNITS/ML VIAL (FIVE THOUSAND) SUBCUT SCH ×3 (06:13→21:43)
[2017-01-27] MEDS: Metoprolol Tartrate IV* 1 MG/ML 5 ML VIAL IV SCH ×3 (06:14→17:40)
[2017-01-27 06:41] LABS: Hematocrit 31 % (42-52); Hemoglobin 10.2 g/dl (14.0-18.0); Mean Corpuscular HGB Conc 33 g/dl (31-36); Mean Corpuscular Hemoglobin 35 pg (27-31); Mean Platelet Volume 8 um3 (7.4-10.4); Red Blood Count 2.88 10^6/ul (4.0-5.4); Red Cell Distribution Width 14 % (10.5-15); White Blood Count 11.6 10^3/ul (3.5-10.8)
[2017-01-27 06:59] LABS: BUN/Creatinine Ratio 22.7 (8-20); Calcium 8.2 mg/dL (8.6-10.3); EGFR African American 61.8 (>60); EGFR Non-African American 48.1 (>60); Potassium 4.4 mmol/L (3.5-5.0)
[2017-01-27 07:04] LABS: Comments Flag Yes; Mean Corpuscular Volume 106 fL (80-94)
[2017-01-27] MEDS: NS 0.9% 1000 ML* 1,000 ML IV SCH ×3 (07:20→16:00)
--- NOTE | 2017-01-27 09:26 | RAD ---
INDICATION: Repair of ulcer. Evaluate for extravasation. COMPARISON: None TECHNIQUE: Gastrografin was administered per NG tube and digital fluoroscopy was performed. 90 seconds of fluoroscopy was utilized. Esophagus: The distal esophagus appears normal normal GE junction: The GE junction is normally positioned. There is no hiatal hernia. Stomach: There is prompt filling the stomach without evidence of extravasation. The barium passes readily through the stomach and is seen in the proximal small bowel. Other: And nasogastric tubes at the level of the cardiac region of the stomach. IMPRESSION: NO EVIDENCE OF EXTRAVASATION CPT II Codes: 6045F PQRS (Fluoro time doc)
[2017-01-27] MEDS: Pantoprazole IV* 40 MG IV SCH ×2 (09:50→20:57)
[2017-01-27] MEDS: Thiamine IV* 100 MG/ML 2 ML VIAL IV SCH (09:55)
--- NOTE | 2017-01-27 11:58 | PN ---
Progress Note - Progress Note Date of Service: 01/27/17 SOAP: Subjective: Doing well without complaint Passing flatus He wants to eat Pain is adequately controlled. Objective: Temp Pulse Resp BP Pulse Ox 98.1 F 56 16 145/83 97 01/27/17 10:20 01/27/17 10:20 01/27/17 10:21 01/27/17 10:20 01/27/17 10:20 Intake & Output 01/25/17 01/26/17 01/27/17 01/28/17 06:59 06:59 06:59 06:59 Intake Total 5245 3336 75 Output Total 1290 2130 60 Balance 3955 1206 15 Weight 187 lb Intake: IV Fluids 4745 3036 75 ABX - ZOSYN 172 NS (0.9%) 945 2864 20 VB1 55 lr 2800 Oral 0 300 Plasma Expanders Amount 500 Output: NG Tube Drainage Amount 150 900 TJ #1 70 105 10 Urine 150 875 50 [place] 900 250 Residual 20 [place] 16 Fr 20 Other: Date of Last Bowel 01/24/17 Movement # Bowel Movements 0 0 PEX: Comfortable Lungs are clear Abd is soft and slightly distended. Dressing intact. TJ in place with serous fluid in bulb. Bowel sounds are present. Laboratory Results - last 24 hr 01/27/17 01/27/17 06:12 06:12 WBC 11.6 H RBC 2.88 L Hgb 10.2 L Hct 31 L MCV 106 H MCH 35 H MCHC 33 RDW 14 Plt Count 141 L MPV 8 Neut % (Auto) 87.2 H Lymph % (Auto) 5.2 L [place] % (Auto) 7.4 Eos % (Auto) 0 Baso % (Auto) 0.2 Absolute Neuts (auto) 10.1 H Absolute Lymphs (auto) 0.6 L Absolute Monos (auto) 0.9 H Absolute Eos (auto) 0 Absolute Basos (auto) 0 Absolute Nucleated RBC 0 Nucleated RBC % 0 Sodium 141 Potassium 4.4 Chloride 112 H Carbon Dioxide 23 Anion Gap 6 BUN 34 H Creatinine 1.50 H Est GFR ( Amer) 61.8 Est GFR (Non-Af Amer) 48.1 BUN/Creatinine Ratio 22.7 H Glucose 100 Calcium 8.2 L UGI reviewed with radiology--no evidence of leak and free flow of contrast into small intestine. Assessment: POD#2 s/p laparoscopic Levon patch repair of perforated duodenal ulcer. HTM Etoh abuse Plan: D/C NGT but keep NPO except ice chips and meds with sips of water-if does OK will start po 01/28. IV antibiotics PPI BID Subq heparin Blood pressure control-appreciate Hospitalist consult. Discussed with patient and his this morning.
--- NOTE | 2017-01-27 13:27 | PN ---
Hospitalist Progress Note HOSPITALIST ADDENDUM Patient's BP is trending up. Appreciate surgical input he now can take PO meds. Will resume clonidine at a lower dose and monitor BP. Renal function continues to improve. Has not required any Ativan so far. Will continue to follow.
[2017-01-27] MEDS: cloNIDine TAB* 0.1 MG PO SCH ×2 (13:47→20:57)
[2017-01-27] MEDS: Folic Acid IV* 1 MG/0.2 ML SYRINGE IV SCH (21:44)
[2017-01-27] MEDS: Folic Acid IV* 50 MG/10 ML VIAL IV SCH (23:12)
[2017-01-28] MEDS: Metoprolol Tartrate IV* 1 MG/ML 5 ML VIAL IV SCH ×2 (00:03→06:08)
[2017-01-28] MEDS: HYDROmorphone INJ* 1 MG/ML CARPUJECT SYRINGE IV SLOW PU PRN ×3 (04:17→16:56)
[2017-01-28] MEDS: Heparin VIAL(*) 5000 UNITS/ML VIAL (FIVE THOUSAND) SUBCUT SCH ×3 (06:08→22:23)
[2017-01-28 07:31] LABS: BUN/Creatinine Ratio 21.9 (8-20); Calcium 7.7 mg/dL (8.6-10.3); EGFR African American 68.6 (>60); EGFR Non-African American 53.4 (>60); Potassium 4.1 mmol/L (3.5-5.0)
[2017-01-28] MEDS: NS 0.9% 1000 ML* 1,000 ML IV SCH ×3 (08:25→23:54)
[2017-01-28] MEDS ORDERED: Metoprolol Succinate XL TAB* 25 MG PO SCH (09:00)
[2017-01-28] MEDS: Pantoprazole IV* 40 MG IV SCH ×2 (09:09→20:33)
[2017-01-28] MEDS: Thiamine IV* 100 MG/ML 2 ML VIAL IV SCH (09:12)
[2017-01-28] MEDS: cloNIDine TAB* 0.1 MG PO SCH ×2 (09:14→20:31)
--- NOTE | 2017-01-28 09:29 | PN ---
Progress Note - Progress Note Date of Service: 01/28/17 SOAP: Subjective: Doing well-minimal pain Had several loose BM's overnight. No N/V Objective: Temp Pulse Resp BP Pulse Ox 98.2 F 54 20 159/88 98 01/28/17 08:12 01/28/17 08:12 01/28/17 08:27 01/28/17 08:12 01/28/17 08:12 Intake & Output 01/26/17 01/27/17 01/28/17 01/29/17 06:59 06:59 06:59 06:59 Intake Total 5245 3336 1599 2232 Output Total 1290 2130 610 165 Balance 3955 4876 400 8460 Weight 187 lb Intake: IV Fluids 4745 3036 1299 2232 ABX - ZOSYN 172 159 221 NS (0.9%) 945 2864 1085 2011 VB1 55 lr 2800 Oral 0 300 300 Plasma Expanders Amount 500 Output: NG Tube Drainage Amount 150 900 TJ #1 70 105 60 15 Urine 150 875 550 150 [place] 900 250 Residual 20 [place] 16 Fr 20 Other: Estimated Void Small Date of Last Bowel 01/24/1701/28 Movement # Bowel Movements 0 0 2 1 Estimated Stool Amount Medium Medium # Voids 1 PEX: Comfortable Lungs are clear Abd is soft and slightly distended. Bowel sounds are hyperactive. TJ in place with serous fluid in bulb. Incisions are clean and dry. Laboratory Results - last 24 hr 01/28/17 06:54 Sodium 139 Potassium 4.1 Chloride 112 H Carbon Dioxide 20 L Anion Gap 7 BUN 30 H Creatinine 1.37 H Est GFR ( Amer) 68.6 Est GFR (Non-Af Amer) 53.4 BUN/Creatinine Ratio 21.9 H Glucose 79 Calcium 7.7 L Assessment: POD# 3 s/p laparoscopic repair of perforated duodenal ulcer with Levon patch. HTN Etoh abuse Cr improved. Plan: Will start clear liquids po PPI PID subq heparin If tolerates po, plan d/c home tomorrow on BID PPI and 5 days of oral antibiotics. D/C TJ on discharge.
[2017-01-28] MEDS ORDERED: Acetaminophen TAB* 325 MG PO PRN (11:52)
[2017-01-28] MEDS ORDERED: HYDROcodone/ACETAMIN 5-325 MG* 1 TAB PO PRN (11:54)
[2017-01-28] MEDS: HYDROcodone/ACETAMIN 5-325 MG* 1 TAB PO PRN ×2 (12:15→20:44)
--- NOTE | 2017-01-28 16:21 | PN ---
Hospitalist Progress Note HOSPITALIST ADDENDUM Patient's BP not yet controlled. Tolerating PO well, surgery will advance his diet today. Increase Clonidine to his usual dose, resume Metoprolol and monitor BP. If his renal function continues to improve, would d/c home on Losartan again.
[2017-01-28] MEDS: Folic Acid IV* 1 MG/0.2 ML SYRINGE IV SCH (20:36)
[2017-01-29] MEDS: HYDROcodone/ACETAMIN 5-325 MG* 1 TAB PO PRN ×2 (00:51→05:59)
[2017-01-29] MEDS: Heparin VIAL(*) 5000 UNITS/ML VIAL (FIVE THOUSAND) SUBCUT SCH (06:01)
[2017-01-29 08:37] VITALS: BP 164/90
--- NOTE | 2017-01-29 08:39 | SURGPN ---
Subjective - Introduction -: Reports doing very well. Denies any pain, nausea or vomiting. Tolerating clear liquids, had multiple loose BMs. No fever or chills. Ready to go home. Had some mild swelling of L forearm, resolving after his peripheral IV was switched to the right side. Denies arm pain, numbness or cold sensation. - Medications -: Active Medications Generic Name Dose Route Start Last Admin Trade Name Freq PRN Reason Stop Dose Admin Acetaminophen 650 mg 01/28/17 11:52 Tylenol Tab* PO Q4H PRN mild pain Hydrocodone Bitart/Acetaminophen 1 tab 01/28/17 11:54 [place] 5-325 Tab* PO Q4H PRN PAIN - MODERATE Hydrocodone Bitart/Acetaminophen 2 tab 01/28/17 11:54 01/29/17 05:59 [place] 5-325 Tab* PO 2 tab Q4H PRN Administration PAIN - MODERATE TO SEVERE Clonidine HCl 0.2 mg 01/28/17 21:00 01/28/17 20:31 [place] Tab* PO 0.2 mg BID MEGAN Administration Folic Acid 1 mg 01/27/17 21:15 01/28/17 20:36 Folic Acid Iv 1 Mg* IV 1 mg BEDTIME MEGAN Administration Heparin Sodium (Porcine) 5,000 units 01/26/17 08:00 01/29/17 06:01 Heparin Vial(*) SUBCUT 5,000 units Q8HR MEGAN Administration Hydromorphone HCl 0.5 mg 01/25/17 19:59 01/27/17 17:47 Dilaudid Iv* IV SLOW PU 0.5 mg Q4H PRN Administration PAIN - MODERATE Hydromorphone HCl 1 mg 01/25/17 19:59 01/28/17 16:56 Dilaudid Iv* IV SLOW PU 1 mg Q4H PRN Administration PAIN - MODERATE TO SEVERE Sodium Chloride 1,000 mls @ 125 mls/hr 01/25/17 20:15 01/28/17 23:54 Ns 0.9% 1000 Ml* IV 125 mls/hr PER RATE MEGAN Administration Piperacillin Sod/Tazobactam 100 mls @ 25 mls/hr 01/25/17 22:30 01/29/17 06:49 Sod 3.375 gm/ Sodium Chloride IVPB 25 mls/hr Q8H MEGAN Administration Lorazepam 0 - 3 mg 01/25/17 21:00 Ativan Inj* IV PUSH .PER [facility] PROTOCOL [facility] Protocol Metoprolol Succinate 50 mg 01/29/17 09:00 Toprol Xl Tab* PO DAILY MEGAN Ondansetron HCl 4 mg 01/25/17 20:00 Zofran Inj* IV Q6H PRN NAUSEA Pantoprazole Sodium 40 mg 01/25/17 21:00 01/28/17 20:33 Protonix Iv* IV 40 mg Q12H MEGAN Administration Thiamine HCl 100 mg 01/26/17 09:00 01/28/17 09:12 Vitamin B1 Iv* IV 100 mg DAILY MEGAN Administration Objective - Objective -: Awake and alert, sitting on bed. Appears comfortable and in NAD. - Intake and Output -: Intake & Output 01/27/17 01/28/17 01/29/17 01/30/17 06:59 06:59 06:59 06:59 Intake Total 3336 1599 5954 Output Total 2130 610 870 Balance 6667 487 2797 Intake: IV Fluids 3036 1299 4318 ABX - ZOSYN 172 159 331 NS (0.9%) 2864 1085 3932 VB1 55 55 IVPB 166 ABX - ZOSYN 166 Oral 304 584 9252 Output: NG Tube Drainage Amount 900 TJ #1 105 60 170 Urine 875 550 500 [place] 250 200 Other: Estimated Void Small Small Date of Last Bowel 01/2801/29/17 Movement # Bowel Movements 0 2 1 Estimated Stool Amount Medium Medium # Voids 1 1 Surgical Physical Exam - Comments -: A-febrile, Tmax 98.2, BP 162/90 Lungs CTA bilat. Heart RRR, no murmurs Abdomn soft, NT, ND. Incision C/D/I. TJ vac with 10 cc serous output, total 170cc past 24 hours. No guarding or rigidity. Ext. without edema. Left forearm with with mild uniform swelling compared to R side, extending from wrist to antecubital fossa. No tenderness noted. Radial pulse intact. Seansation intact. Assessment and Plan - Assessment -: A 56 y/o male, POD#4, s/p laparoscopic Levon's patch repair of perforated duodenal ulcer, doing well. - Plan Additional Comments: Will plan on d/c to home later this AM Will maintain him on PO Augmentin for 5 additional days, plus PPI coverage BID He can resume all his BP meds as usual, and to F/U with PCP in 1-2 weeks. Will d/w Dr. Torres if TJ drain should be continued until seen in office next week, vs d/c it upon discharge I doubt any acute process with L forearm, however, I will discuss it with Dr. Torres for further recommendations.
[2017-01-29] MEDS: Pantoprazole IV* 40 MG IV SCH (08:55)
[2017-01-29] MEDS: cloNIDine TAB* 0.1 MG PO SCH (08:55)
[2017-01-29] MEDS: Thiamine IV* 100 MG/ML 2 ML VIAL IV SCH (08:55)
[2017-01-29] MEDS ORDERED: Metoprolol Succinate XL TAB* 50 MG PO SCH (09:00)
--- NOTE | 2017-01-29 19:48 | DS ---
DISCHARGE SUMMARY: DATE OF ADMISSION: 01/25/17 DATE OF DISCHARGE: 01/29/17 PATIENT OF: Gordon Torres MD. ADMISSION DIAGNOSIS: Severe abdominal pain. DISCHARGE DIAGNOSES: 1. Perforated duodenal ulcer. 2. Hypertension. 3. Hyperkalemia. 4. Renal insufficiency. 5. Dehydration. ATTENDING PHYSICIAN: Gordon Torres MD. CONSULTATION: Alessandra Grimm MD. PROCEDURE: Laparoscopic repair of perforated duodenal ulcer on 01/25/17. HISTORY OF PRESENT ILLNESS: Mr. Mando Fowler is a pleasant 56-year-old gentleman who presented to [facility] emergency room on 01/25/17 with sudden onset of severe abdominal pain that started earlier that alis bender. He has never had any similar abdominal pain in the past. He described it as a sudden onset of sharp epigastric and mid abdominal pain associated with fever, chills, nausea and vomiting. The patient was evaluated in the emergency room and was found to have normal white count of 13,000. He went on and had an ultrasound of the right upper quadrant that showed no significant finding sugges ting gallbladder disease. He subsequently had a CT scan of the abdomen and pelvis that revealed mod erate amount of free intraperitoneal air and fluid with some thickening of the gastroduodenal area, mostly likely consistent with perforated duodenal ulcer. The patient himself has been chronically o n naproxen for chronic osteoarthritis and pain. He also has a known history of alcohol abuse and richards s been lately trying to abstain from using alcohol. Given his ongoing symptoms and the finding of [facility] CT scan, he was admitted for surgical intervention. HOSPITAL COURSE: The patient was admitted under surgical services and was taken to the operating ro om later this evening on 01/25/17, where he had laparoscopic repair of perforated duodenal ulcer by Dr. Torres. After surgery, the patient was transferred to the recovery room in a stable conditio n and then was admitted to the surgical floor. He had an NG tube in and he was maintained n.p.o. fo r the immediate postoperative period. He was noticed to have elevated BUN and creatinine more likel y in account of his dehydration and he was gently hydrated and was maintained on his blood pressure medication as well. A medical consult was obtained by Dr. Grimm for blood pressure control. On e following morning, he had an upper GI study that revealed no evidence of leak. On the second day postoperatively, his NG tube was removed and he started on sips of clear liquid that he tolerated we ll. The patient was ambulatory out of bed and in a stable condition. He continued to improve on a daily basis and his diet was gradually advanced to full liquid prior to his discharge. On discharge morning, the patient was stable and ready to go home. He will see us in the office nex t week for a followup and his TJ drain was removed at bedside today. He was also advised to follow up with his primary care physician in the next week or two to discuss his hypertension and medicatio n changes. DISCHARGE MEDICATIONS: Include: 1. Hydrochlorothiazide 25 mg p.o. daily. 2. Folic acid 1 mg p.o. daily. 3. Augmentin 875 mg p.o. b.i.d. for 5 days. 4. Aspirin 81 mg p.o. daily. 5. Zyrtec 10 mg p.o. daily. 6. Clonidine 0.2 mg p.o. b.i.d. 7. Percocet 1 to 2 tablets q.6 hours as needed for pain. 8. Losartan 100 mg p.o. daily. 9. Magnesium oxide 500 mg p.o. daily. 10. Metoprolol 50 mg p.o. daily. 11. Multivitamin 1 tablet daily. 12. Prilosec 20 mg p.o. b.i.d. 13. Thiamine 100 mg p.o. daily. PROBLEM LIST: 1. Perforated duodenal ulcer, status post laparoscopic repair of perforated duodenal ulcer on 01/25. 2. Renal insufficiency. 3. Hypertension. 4. Alcohol abuse. KEVIN MELENDREZ [id number]/[facility] #: [id number]
== END 2017-01-29 10:30 | disposition home health service (06) | DRG 223 ==
LOC: OR 10:55 → ED 10:55 → SSU 19:52
PROVIDERS: ADMIT Surgery; ATTEND Surgery
PROC: 0DU947Z Supplement Duodenum with Autologous Tissue Substitute, Percutaneous Endoscopic Approach (ICD-10-PCS; principal; 2017-01-25 17:00)
PROC: 0D9670Z Drainage of Stomach with Drainage Device, Via Natural or Artificial Opening (ICD-10-PCS; 2017-01-26)
PROC: 0DP6XUZ Removal of Feeding Device from Stomach, External Approach (ICD-10-PCS; 2017-01-27)
DX: K26.5 Chronic or unspecified duodenal ulcer with perforation (principal); K65.9 Peritonitis, unspecified; N17.9 Acute kidney failure, unspecified; I10 Essential (primary) hypertension; M19.90 Unspecified osteoarthritis, unspecified site; F17.210 Nicotine dependence, cigarettes, uncomplicated; G89.29 Other chronic pain; M54.5 Low back pain; E87.5 Hyperkalemia; E86.0 Dehydration; F10.10 Alcohol abuse, uncomplicated; Y90.9 Presence of alcohol in blood, level not specified; Z79.82 Long term (current) use of aspirin
CPT/HCPCS: 36415; 74000; 74177; 74246; 76705; 80048; 80053; 81003; 81015; 82150; 82570; 83605; 83690; 83735; 83880; 84300; 84484; 85025; 86140; 93005; A9270-GY; J1100; J1170; J1644; J2250; J2270; J2405; J2543; J2704; J3010; J3411; Q9967

== ENCOUNTER 2018-03-06 22:56 | Observation (INO) | payer BC ==
[2018-03-06] MEDS ORDERED: NS 0.9% 1000 ML* 1,000 ML IV ONE (23:03)
--- NOTE | 2018-03-06 23:04 | ED ---
Neurological HPI - HPI Summary HPI Summary: A 57 y/o M without hx of sz was BIBA presents to ED s/p sz onset [employer]LECT[employer]. He had an unwitnessed fall. Associated sx: neck pain. Denies head pain, MENDES. Pt is a recovering alcoholic (vodka) and had his last drink of ETOH eight days ago. Pt was not given meds en route by EMS. Pt does not remember what happened to him, he last remembers eating dinner and watching baseball. His thinks he must have hit something when he fell because he wasn't in the middle of the room. Recent dx of diverticulitis two days ago and is on Flagyl, Cipro. He is on a liquid diet, states his abd pain is approx 1/10, much improved from two days ago. Previous surgeries include: duodenal ulcer surgery, hip replacement. - History of Current Complaint Stated Complaint: SEIZURE Time Seen by Provider: 03/06/18 23:02 Hx Obtained From: Patient, Family/Accreditation Manager - Onset/Duration: Sudden Onset, Resolved Number of Seizures: 1 Alleviating: Spontanious Resolution Associated Signs and Symptoms: Positive: Memory Loss, Neck Pain/Stiffness, Change in Medication, Change in Diet. Negative: Headache, Pain - head - Allergy/Home Medications Allergies/Adverse Reactions: Allergies Allergy/AdvReac Type Severity Reaction Status Date / Time amlodipine Allergy Swelling Verified 03/06/18 23:59 atenolol Allergy Swelling Verified 03/06/18 23:59 lisinopril Allergy Swelling Verified 03/06/18 23:59 nifedipine Allergy Swelling Verified 03/06/18 23:59 Home Medications: Home Medications Ciprofloxacin HCl [Cipro] 500 mg PO BID 03/06/18 [History Confirmed 03/06/18] Hydrochlorothiazide TAB* [Hydrodiuril TAB*] 25 mg PO DAILY 03/06/18 [History Confirmed 03/06/18] Tramadol HCl 50 mg PO TID PRN 03/06/18 [History Confirmed 03/06/18] Trazodone HCl 100 mg PO BEDTIME 03/06/18 [History Confirmed 03/06/18] buPROPion HCl [Bupropion HCl Sr] 100 mg PO BID 03/06/18 [History Confirmed 03/06] metroNIDAZOLE * 1 tab PO TID 03/06/18 [History Confirmed 03/06/18] PMH/Surg Hx/FS Hx/Imm Hx Previously Healthy: No Endocrine/Hematology History: Denies: Hx Diabetes Cardiovascular History: Reports: Hx Hypertension Denies: Hx Congestive Heart Failure GI History: Reports: Hx Diverticulosis, Hx Ulcer - Surgical History Surgery Procedure, Year, and Place: None. - Family History Known Family History: Positive: Other - POS: gallbladder disease - Social History Occupation: Retired Lives: With Family Alcohol Use: None Alcohol Amount: No alcohol use currently, although he is a recovering alcoholic. Hx Substance Use: No Substance Use Type: Reports: None Hx Tobacco Use: Yes Smoking Status (MU): Current Every Day Smoker Review of Systems Positive: Other - pos: neck pain; neg: head pain Neurological: Other - pos: s/p sz; memory loss Negative: Headache All Other Systems Reviewed And Are Negative: Yes Physical Exam - Summary Physical Exam Summary: Appearance: Well appearing, no pain distress Skin: warm, dry, reflects adequate perfusion Head/face: normal, contusion to R-side of lower lip Eyes: EOMI, GREGORIO ENT: mucous membranes moist, no tongue contusion Neck: supple, C7-T1 minimal tenderness to midline Respiratory: CTA, breath sounds present Cardiovascular: RRR, pulses symmetrical Abdomen: non-tender, soft Bowel Sounds: present Musculoskeletal: normal, strength/ROM intact, no peripheral edema. Neuro: normal, sensory motor intact, A&Ox3 Triage Information Reviewed: Yes Vital Signs Reviewed: Yes - Clarence Coma Scale Best Eye Response: 4 - Spontaneous Best Motor Response: 6 - Obeys Commands Best Verbal Response: 5 - Oriented Coma Scale Total: 15 Diagnostics - Laboratory Result Diagrams: 03/06/18 23:16 03/06/18 23:16 Lab Statement: Any lab studies that have been ordered have been reviewed, and results considered in the medical decision making process. - CT BRAIN CT Interpretation Completed By: Radiologist Summary of CT Findings: IMPRESSION: No acute findings. ED provider has reviewed this report. CSPINE CT Interpretation Completed By: Radiologist Summary of CT Findings: IMPRESSION: 1. Fracture of the anterior aspect of the C7 vertebral body. There is a. prominent anterior osteophyte which extends from C2-TA fracture of the anterior osteophytes at the level of the superior endplate of C7 which extends to the inferior aspect mid body of C7. Minimal distraction of the fracture fragments. No significant paravertebral soft tissue mass. 2. Ossification the posterior longitudinal ligament. A prominent spur located. centrally and to the right of midline at C3-C4 and centrally at C4- C5. This. causes moderate to moderately severe narrowing of the spinal canal. 3. Multilevel degenerative facet disease. Variable degrees of neural foraminal narrowing secondary degenerative changes of the uncovertebral joints and facet joints. ED provider has reviewed this report. C-SPINE CT Interpretation Completed By: Radiologist Summary of CT Findings: IMPRESSION: 1. Fracture of the anterior aspect of the C7 vertebral body. There is a. prominent anterior osteophyte which extends from C2-TA fracture of the anterior osteophytes at the level of the superior endplate of C7 which extends to the inferior aspect mid body of C7. Minimal distraction of the fracture fragments. No significant paravertebral soft tissue mass. 2. Ossification the posterior longitudinal ligament. A prominent spur located. centrally and to the right of midline at C3-C4 and centrally at C4- C5. This. causes moderate to moderately severe narrowing of the spinal canal. 3. Multilevel degenerative facet disease. Variable degrees of neural foraminal narrowing secondary degenerative changes of the uncovertebral joints and facet joints. ED provider has reviewed this report. - EKG 2313 Cardiac Rate: NL - 77bpm EKG Rhythm: Sinus Rhythm ST Segment: Normal Summary of EKG Findings: Long QT 488 ms Re-Evaluation - Re-Evaluation 1 Re-Evaluation Time: 00:27 Change: Improved Comment: Discussing lab and CT results with pt and plan to admit. 2 Re-Evaluation Time: 00:42 Change: Unchanged Comment: Pt in a [place] J collar Course/Dx - Course Course Of Treatment: Known heavy drinker of vodka presents with abrupt onset seizure with no history of the same. Fell with pain in the low cervical spine. C-collar applied on arrival. CT confirms C7 fracture through heavy osteophytes. He was converted over to a [place] J collar for comfort. He is neurologically intact and is alert and oriented. He has perhaps only fine tremor noticed most in his tongue. Presume this to be alcohol withdrawal seizure. 2 mg of IV Ativan were given and the patient had no sedating effects from this. CT of the brain was negative. His magnesium is very low. This was replaced. Discussed the case with the hospitalist who will admit and consult the spine surgeon in the morning. - Differential Dx Differential Diagnoses Neuro: Positive: Alcohol Abuse, Hypoglycemia, Hypovolemia , Medication Reaction, Metabolic Abnormality, Seizure Disorder - Diagnoses Provider Diagnoses: Alcohol withdrawal seizure, Hypomagnesemia, C7 cervical fracture - Physician Notifications Discussed Care Of Patient With: Jeanie Joseph - hospitalist Time Discussed With Above Provider: 00:23 Instructed by Provider To: Admit As Inpatient - Critical Care Time Critical Care Time: 30-74 min - Critical care time is exclusive of separately billable procedures Discharge - Sign-Out/Discharge Documenting (check all that apply): Patient Departure - ADM - Discharge Plan Condition: Stable Disposition: ADMITTED TO [facility] - Billing Disposition and Condition Condition: STABLE Disposition: Admitted to [facility] - Attestation Statements Document Initiated by Scribe: Yes Documenting Scribe: Chiara Diana Provider For Whom Scribe is Documenting (Include Credential): Dr. Elkin Trotter MD Scribe Attestation: Chiara Delaney scribed for Dr. Elkin Trotter MD on 03/07/18 at 0414. Scribe Documentation Reviewed: Yes Provider Attestation: The documentation as recorded by the Chiara geronimo accurately reflects the service I personally performed and the decisions made by me, Dr. Elkin Trotter MD
[2018-03-06] MEDS ORDERED: LORazepam INJ* 2 MG/ML 1 ML VIAL IV PUSH ONE (23:12)
[2018-03-06] MEDS ORDERED: Thiamine IV* 100 MG/ML 2 ML VIAL IV ONE (23:13)
[2018-03-06 23:28] LABS: ABS Basophils 0 10^3/ul (0-0.2); ABS Eosinophils 0.1 10^3/ul (0-0.6); ABS Lymphocytes 0.5 10^3/ul (1.0-4.8); ABS Monocytes 0.7 10^3/ul (0-0.8); ABS Neutrophils 3.6 10^3/ul (1.5-7.7); ABS Nucleated RBC 0 10^3/ul; Eosinophil % 2.1 % (0-6); Hematocrit 33 % (42-52); Hemoglobin 11.4 g/dl (14.0-18.0); Lymphocyte % 9.8 % (25-47); Mean Corpuscular HGB Conc 34 g/dl (31-36); Mean Corpuscular Hemoglobin 35 pg (27-31); Mean Corpuscular Volume 101 fL (80-94); Mean Platelet Volume 7.5 um3 (7.4-10.4); Nucleated Red Blood Cells % 0; Platelet Count 137 10^3/ul (150-450); Red Blood Count 3.27 10^6/ul (4.00-5.40); Red Cell Distribution Width 14 % (10.5-15)
[2018-03-06 23:41] LABS: INR 0.95 (0.77-1.02)
[2018-03-06 23:45] LABS: EGFR Non-African American 50.2 (>60)
--- NOTE | 2018-03-06 23:58 | RAD ---
EXAM: CT Head Without Intravenous Contrast EXAM DATE/TIME: 03/06/2018 11:31 PM CLINICAL HISTORY: 57 years old, male; Signs and symptoms; Other: Siezure; Additional info: Seizure TECHNIQUE: Axial computed tomography images of the head/brain without intravenous contrast. All CT scans at this facility use at least one of these dose optimization techniques: automated exposure control; mA and/or kV adjustment per patient size (includes targeted exams where dose is matched to clinical indication); or iterative reconstruction. COMPARISON: No relevant prior studies available. FINDINGS: Brain: No acute intracranial hemorrhage. No intracranial mass or mass effect. The fine matter is intact. No significant white matter pathology. Ventricles: No obstructive hydrocephalus. Bones/joints: Normal. No acute fracture. Sinuses: Near-total opacification of the right side of the sphenoid sinus. Mucoperiosteal thickening of the left maxillary sinus. Mastoid air cells: Normal as visualized. No mastoid effusion. Soft tissues: Normal. IMPRESSION: No acute findings. To contact [facility] with a general question: [facility] - [phone] For direct physician to physician contact: Physician Hotline - [phone] [facility] ([facility] ID #[id number])
--- NOTE | 2018-03-07 00:22 | RAD ---
EXAM: CT Cervical Spine Without Intravenous Contrast EXAM DATE/TIME: 03/06/2018 11:33 PM CLINICAL HISTORY: 57 years old, male; Signs and symptoms; Other: Siezure; Additional info: Injury during seizure TECHNIQUE: Axial computed tomography images of the cervical spine without intravenous contrast. All CT scans at this facility use at least one of these dose optimization techniques: automated exposure control; mA and/or kV adjustment per patient size (includes targeted exams where dose is matched to clinical indication); or iterative reconstruction. Coronal and sagittal reformatted images were created and reviewed. COMPARISON: DX CSP SP CERVICAL 4+VWS 11/26/2016 12:22 PM FINDINGS: Vertebrae: Fracture of the anterior aspect of the C7 vertebral body. This begins at the level of the superior endplate and extends obliquely into the area of the inferior endplate in the mid cervical area. 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 At the level of C3 and C4 there is moderate to moderately severe narrowing of the central canal and due to the ossification of the posterior longitudinal ligament. No other fractures involving the cervical vertebral bodies or posterior elements. Calcification of the ligamentous structures supporting the dens. No pathologic subluxation. Discs/Spinal canal/Neural foramina: The patient has an extensive anterior bridging osteophyte going from C2 to T1. No significant stenosis of the upper cervical spinal canal. Multilevel degenerative cervical disc disease and facet disease. Moderate to moderately severe narrowing of the central canal at C3 and C4. No significant central canal stenosis from the C5-C6 to the C7-T1 disc spaces. Variable degrees of neural foramina narrowing seen there degenerative changes of the uncovertebral joints and facet joints. Soft tissues: No significant perivertebral soft tissue swelling. Vasculature: Calcification of the left carotid artery. IMPRESSION: 1. Fracture of the anterior aspect of the C7 vertebral body. There is a prominent anterior osteophyte which extends from C2-TA fracture of the anterior osteophytes at the level of the superior endplate of C7 which extends to the inferior aspect mid body of C7. Minimal distraction of the fracture fragments. No significant paravertebral soft tissue mass. 2. Ossification the posterior longitudinal ligament. A prominent spur located centrally and to the right of midline at C3-C4 and centrally at C4-C5. This causes moderate to moderately severe narrowing of the spinal canal. 3. Multilevel degenerative facet disease. Variable degrees of neural foraminal narrowing secondary degenerative changes of the uncovertebral joints and facet joints. To contact [facility] with a general question: Operations Center - [phone] For direct physician to physician contact: Physician Hotline - [phone] [facility] ([facility] Facility ID #[id number])
[2018-03-07] MEDS ORDERED: Magnesium Sulfate 2 GM IV* 2 GM/50 ML BAG IVPB ONE (00:35)
[2018-03-07] MEDS ORDERED: Morphine VIAL* 4 MG/ML VIAL (1 ml vial) IV PRN (01:24)
[2018-03-07] MEDS ORDERED: LORazepam TAB(*) 0.5 MG PO PRN ×2 (01:24→06:30)
[2018-03-07] MEDS ORDERED: Magnesium Sulfate IV* 3 GM in NS 0.9% 100 ML* 100 ML IVPB ONE (01:34)
[2018-03-07] MEDS: NS 0.9% 1000 ML* 1,000 ML IV SCH ×3 (02:35→23:20)
[2018-03-07] MEDS: traZODone TAB* 100 MG PO SCH ×2 (03:01→22:18)
--- NOTE | 2018-03-07 05:02 | HP ---
CC: Grazyna Menon NP * HISTORY AND PHYSICAL: DATE OF ADMISSION: 03/07/18 PRIMARY CARE PROVIDER: Grazyna Menon NP CHIEF COMPLAINT: Seizure. HISTORY OF PRESENT ILLNESS: Mr. Fowler is a 57-year-old male who has a history of hypertension, alcoholism and depression who presented to the emergency room after having a seizure at home. The patient states that on 02/28/18 he stopped drinking cold turkey as he and his had had a fight about his alcohol intake. He states that on Wednesday and of this past week he began to have what were described as dry heaves developing into left lower quadrant abdominal pain. On 03/04/18, the patient went to see his primary care provider and was prescribed ciprofloxacin and Flagyl for treatment of diverticulitis. The patient states that after initiating those 2 antibiotics, he began to feel somewhat lousy and thought perhaps it was related to those 2 antibiotics. On the evening of 03/06/18, the patient states that he was sitting in his chair at the dining room table finishing eating. He got up taking his plate to the kitchen at approximately 9:50 p.m. and suddenly he fell backwards. His describes shaking of all 4 limbs, the patient being unconscious, grinding his teeth, and then ultimately becoming quite rigid. She thinks that the seizure activity lasted 2 to 3 minutes. She states that she tried to put her finger in his mouth to prevent him from grinding his teeth any further, but he did bite her. She states that ultimately when he came to, he was very disoriented for 5 to 10 minutes. She noted that he was profusely diaphoretic. He has never had a seizure in the past. The patient does have a history of DTs in prior alcohol withdrawal. He has never had an alcohol withdrawal seizure. He relapsed with his drinking in late December or early January drinking approximately 1 pint of liquor a day. PAST MEDICAL HISTORY: 1. Hypertension. 2. Alcohol abuse. 3. Osteoarthritis. 4. Depression. PAST SURGICAL HISTORY: 1. Bilateral hip replacements. 2. Exploratory laparotomy with Levon patch for perforated duodenal ulcer. MEDICATIONS: 1. Clonidine 0.2 mg p.o. daily. 2. Metoprolol XL 50 mg p.o. q.h.s. 3. Losartan 100 mg p.o. daily. 4. Tramadol 50 mg p.o. t.i.d. p.r.n. pain. 5. Trazodone 100 mg p.o. q.h.s. 6. Hydrochlorothiazide 25 mg p.o. daily. 7. Cetirizine 10 mg p.o. daily. 8. Cialis 10 to 20 mg p.o. daily p.r.n. erectile dysfunction. 9. Multivitamin 1 tab p.o. daily. 10. Thiamine 100 mg p.o. daily. 11. Omeprazole 20 mg p.o. b.i.d. 12. Folic acid 1 mg p.o. daily. 13. Cipro 500 mg p.o. b.i.d. 14. Flagyl 500 mg p.o. t.i.d. 15. Bupropion HCL SR 100 mg p.o. b.i.d. ALLERGIES: NSAIDS, ATENOLOL, AMLODIPINE, LISINOPRIL, and NIFEDIPINE. FAMILY HISTORY: Mom is living, she is 91; she has a history of breast cancer and hypertension. Dad is at the age of 72 of a stroke. SOCIAL HISTORY: The patient smokes an occasional cigarette. He drinks alcohol as above. He worked for [employer]. He is . He has 2 children. He indicates that his would be his healthcare proxy. REVIEW OF SYSTEMS: A complete 11-system review of systems is obtained. Pertinent positives and negatives are as HPI, and in addition, the patient does state that since this past Wednesday his appetite has been poor. His states that he lost a significant amount of weight over the last 1 year and she believes it is related to depression, which he is now being treated for. He admits to abdominal pain as above, also states that he has had some nausea recently. He also feels as if his legs are heavy, though he has had no focal weakness; it is just a sensation that his legs are not as nimble as normal. PHYSICAL EXAMINATION GENERAL: The patient is a well-developed middle-aged male seen sitting in the stretcher, in a Yell J collar, in no acute distress. VITAL SIGNS: Blood pressure 151/100, pulse 83, respirations 18, temp 98.7, O2 sat 96% on room air. HEENT: Pupils are equal and round. Extraocular muscles are intact. Oropharynx is clear. It appears the patient has geographic tongue. PULMONARY: Lungs are clear to auscultation anteriorly. CARDIAC: Normal S1, S2. Regular rate and rhythm. There is no lower extremity edema. ABDOMEN: Bowel sounds are present. Abdomen is soft, nondistended. He is mildly tender to deep palpation of the left lower quadrant. MUSCULOSKELETAL: There is no cyanosis or clubbing of the digits. There is full active range of motion of all 4 extremities. SKIN: Warm and dry. There are no rashes. NEURO: Cranial nerves II through XII are grossly intact. Sensation is intact to light touch. Strength appears to be normal bilaterally. PSYCH: The patient is alert. He is oriented x3. Affect appears appropriate. DIAGNOSTIC STUDIES/LAB DATA: WBC 5.0, hemoglobin 11.4, hematocrit 33, platelets 137. INR 0.95. Sodium 134, potassium 4.8, chloride 100, CO2 25, BUN 16, creatinine 1.44, glucose 156, calcium 8.6, magnesium 0.9. Bilirubin 0.5, AST 31, ALT 23, alk phos 73, GGT 75, albumin 3.6. B12 1076. TSH 6.40. EtOH less than 10. CT brain: No acute findings. CT cervical spine: There is a fracture of the anterior aspect of the C7 vertebral body. There is a prominent anterior osteophyte which extends from C2 to the fracture of the anterior osteophytes at the level of the superior endplate of C7, which extends to the inferior aspect mid body of C7. Minimal distraction of the fracture fragments is noted. There is no significant paravertebral soft tissue mass. There is ossification of the posterior longitudinal ligaments. A prominent spur located centrally into the right of midline at C3-4 and centrally at C4-5. This causes moderate to moderately severe narrowing of the spinal canal. Multi-degenerative facet disease and variable degrees of neuro foraminal narrowing secondary to degenerative changes of the uncovertebral joints and facet joints is noted. ASSESSMENT AND PLAN: Mr. Fowler is a 57-year-old male who has a history of hypertension and alcoholism as well as depression who presents to the emergency room after sustaining a seizure at home. 1. Seizure. The differential would be new onset seizures versus alcohol withdrawal seizure. The patient stopped drinking approximately 1 week ago. At this point, this is a fairly long timeframe out from from his last alcoholic beverage, continuing to go through alcohol withdrawal; however, he was started on Cipro and Flagyl for possible diverticulitis and the Cipro could have lowered his seizure threshold. At this point, the patient will be admitted under observation status to the medical floor. A neurology consultation will be requested tomorrow. I will order an EEG given how long it is out from his last drink. He will be placed on a WAM protocol. I will not initiate any antiepileptics at this point. 2. C7 fracture. The patient has a significant very large anterior osteophyte that is fractured at the level of C7 and extends into the C7 vertebral body. Neurosurgery consultation will be requested tomorrow. For now, he will remain in a Yell J collar. 3. Diverticulitis. The patient was diagnosed with diverticulitis on 03/04/18. As above, he was started on Cipro and Flagyl to treat this. As quinolones can lower the seizure threshold, I will stop this and change them to Augmentin to continue another 4 to 6 days of antibiotic therapy. 4. Hypertension. The patient will be maintained on his usual home medication regimen. 5. Alcohol abuse. The patient will be placed on a WAM protocol as above. 6. Depression. We will continue Wellbutrin and trazodone at night for sleep. 7. DVT prophylaxis: According to the Adult Thrombosis Prophylaxis Risk Factor Assessment Guide, the patient has a total risk factor score of 1 making him low risk. SCDs will be utilized as DVT prophylaxis. 8. Code status is full. TIME SPENT: Sixty-five minutes was spent admitting this patient. [id number]/[facility] #: [id number] VON
[2018-03-07] MEDS: Multivitamins/Minerals TAB PO SCH (08:49)
[2018-03-07] MEDS: Amoxicillin/Clavulanate TAB* 500 MG PO SCH ×2 (08:49→20:36)
[2018-03-07] MEDS: Hydrochlorothiazide TAB* 25 MG PO SCH (08:49)
[2018-03-07] MEDS: Losartan TAB* 25 MG PO SCH (08:49)
[2018-03-07] MEDS: Folic Acid TAB* 1 MG PO SCH (08:49)
[2018-03-07] MEDS: traMADol TAB* 50 MG PO PRN ×2 (08:49→14:42)
[2018-03-07] MEDS: Omeprazole CAP* 20 MG PO SCH ×2 (08:50→17:11)
[2018-03-07] MEDS: cloNIDine TAB* 0.1 MG PO SCH (08:50)
[2018-03-07] MEDS: Thiamine TAB* 100 MG TAB PO SCH (08:50)
[2018-03-07] MEDS ORDERED: CLONIDINE HCL 0.2 MG PO SCH (09:00)
[2018-03-07] MEDS ORDERED: Ciprofloxacin TAB* 500 MG PO SCH (09:00)
[2018-03-07] MEDS ORDERED: metroNIDAZOLE * 500 MG TABLET PO SCH (09:00)
[2018-03-07] MEDS ORDERED: Losartan TAB* 25 MG PO SCH (09:00)
[2018-03-07] MEDS ORDERED: buPROPion SR TAB.SR* 100 MG PO SCH (09:00)
[2018-03-07] MEDS ORDERED: Metoprolol Succinate XL TAB* 50 MG PO SCH ×2 (09:00→21:00)
[2018-03-07 09:19] LABS: ABS Basophils 0 10^3/ul (0-0.2); ABS Eosinophils 0.1 10^3/ul (0-0.6); ABS Lymphocytes 0.4 10^3/ul (1.0-4.8); ABS Monocytes 0.6 10^3/ul (0-0.8); ABS Neutrophils 3.9 10^3/ul (1.5-7.7); ABS Nucleated RBC 0 10^3/ul; Eosinophil % 1.3 % (0-6); Hematocrit 30 % (42-52); Hemoglobin 10.3 g/dl (14.0-18.0); Lymphocyte % 8.4 % (25-47); Mean Corpuscular HGB Conc 34 g/dl (31-36); Mean Corpuscular Hemoglobin 35 pg (27-31); Mean Corpuscular Volume 101 fL (80-94); Mean Platelet Volume 7.6 um3 (7.4-10.4); Nucleated Red Blood Cells % 0; Platelet Count 114 10^3/ul (150-450); Red Blood Count 2.99 10^6/ul (4.00-5.40); Red Cell Distribution Width 14 % (10.5-15)
[2018-03-07 09:37] LABS: EGFR Non-African American 60.2 (>60)
[2018-03-07] MEDS ORDERED: Magnesium Oxide TAB* 400 MG PO ONE (10:15)
--- NOTE | 2018-03-07 10:32 | PN ---
Subjective Date of Service: 03/07/18 Interval History: patient denies any hx of seizure or any further seizure since admission. Reports pain in the back of his neck. Denies MENDES, numbness, tingling, no bowel or bladder incontinence. Denies any difficulty urinating. Denies any abdominal pain. reports some loose stool. Objective Active Medications: Amoxicillin/Clavulanate Potassium (Augmentin Tab*) 500 mg PO BID [facility] Last Admin: 03/07/18 08:49 Dose: 500 mg Bupropion HCl (Wellbutrin Sr Tab*) 100 mg PO BID [facility] Last Admin: 03/07/18 08:50 Dose: 100 mg Clonidine HCl (Catapres Tab*) 0.2 mg PO DAILY [facility] Last Admin: 03/07/18 08:50 Dose: 0.2 mg Folic Acid (Folvite Tab*) 1 mg PO DAILY [facility] Last Admin: 03/07/18 08:49 Dose: 1 mg Hydrochlorothiazide (Hydrodiuril Tab*) 25 mg PO DAILY [facility] Last Admin: 03/07/18 08:49 Dose: 25 mg Sodium Chloride (Ns 0.9% 1000 Ml*) 1,000 mls @ 100 mls/hr IV PER RATE [facility] Last Admin: 03/07/18 02:35 Dose: 100 mls/hr Lorazepam (Ativan Tab(*)) 0 mg PO Q2H PRN; Protocol PRN Reason: ANXIETY Losartan Potassium (Cozaar Tab*) 100 mg PO DAILY [facility] Last Admin: 03/07/18 08:49 Dose: 100 mg Magnesium Oxide (Magox 400 Tab*) 800 mg PO ONCE ONE Stop: 03/07/18 10:16 Metoprolol Succinate (Toprol Xl Tab*) 50 mg PO BEDTIME [facility] Morphine Sulfate (Morphine Vial*) 4 mg IV Q4H PRN PRN Reason: PAIN - MILD Multivitamins/Minerals (Theragran/Minerals Tab*) 1 tab PO DAILY [facility] Last Admin: 03/07/18 08:49 Dose: 1 tab Omeprazole (Prilosec Cap*) 20 mg PO BID AC [facility] Last Admin: 03/07/18 08:50 Dose: 20 mg Thiamine HCl (Vitamin B-1 Tab*) 100 mg PO DAILY [facility] Last Admin: 03/07/18 08:50 Dose: 100 mg Tramadol HCl (Ultram*) 50 mg PO Q6H PRN PRN Reason: PAIN Last Admin: 03/07/18 08:49 Dose: 50 mg Trazodone HCl (Desyrel Tab*) 100 mg PO BEDTIME [facility] Last Admin: 03/07/18 03:01 Dose: 100 mg Vital Signs - 8 hr 03/07/18 03/07/18 03/07/18 02:29 02:36 04:30 Temperature 98.9 F 98.9 F 98.5 F Pulse Rate 76 76 76 Respiratory 18 18 Rate Blood Pressure 147/85 147/85 138/77 (mmHg) O2 Sat by Pulse 99 99 99 Oximetry 03/07/18 03/07/18 03/07/18 06:06 08:12 08:49 Temperature 98.4 F 98.4 F Pulse Rate 80 83 Respiratory 18 16 18 Rate Blood Pressure 137/78 143/87 (mmHg) O2 Sat by Pulse 98 98 Oximetry Oxygen Devices in Use Now: None Appearance: 57 yo male laying in bed with Wallace J collar A+O x3 in NAD - at bedside Eyes: No Scleral Icterus, PERRLA Ears/Nose/Mouth/Throat: NL Teeth, Lips, Gums, Mucous Membranes Moist Neck: - - [place] J collar Respiratory: Symmetrical Chest Expansion and Respiratory Effort, Clear to Auscultation Cardiovascular: NL Sounds; No Murmurs; No JVD, RRR, No Edema Abdominal: NL Sounds; No Tenderness; No Distention Lymphatic: No Cervical Adenopathy Extremities: No Edema, No Clubbing, Cyanosis Skin: No Rash or Ulcers, No Nodules or Sclerosis Neurological: Alert and Oriented x 3, NL Sensation, NL Muscle Strength and Tone Lines/Tubes/Other Access: Clean, Dry and Intact Peripheral IV Nutrition: Taking PO's Result Diagrams: 03/07/18 08:57 03/07/18 08:57 Assess/Plan/Problems-Billing Assessment: 57 yo male with a PMH of HTN, Alcoholism with hx of DTs and Depression who presented to the ER after having a seizure at home (no prior hx of seizures) who was found to have suffered a C7 fx. Pt with recent diagnosis of diverticulitis on Cipro/Flagyl. - Patient Problems (1) Seizure Comment: - no further seizure. Alcohol withdrawal vs new onset seizures. Pt reports last drink approx 1 week ago. Recent prescription of Cipro which could lower the seizure threshold. - EEG pending - Neuro consult pending - continue seizure precautions. - continue WA protocol (2) C7 cervical fracture Comment: - CT showing fracture- continue Wallace J collar - Neurosurgery consult pending (3) Electrolyte abnormality Comment: - severe magnesium deficiency - Mg+ 0.9 - today 1.7. Continue magnesium supplementation. Recheck in am. (4) Alcohol abuse Comment: - No signs of alcohol withdrawal at this time. - Continue WA protocol. - continue electrolyte replacement, multi-vit, folic acid, thiamine - social work consult (5) Diverticulitis Comment: - continue Augmentin last day 03/11 - dx 03/04 by pcp started on cipro/flagyl which were DC'd on admission - (6) HTN (hypertension) Comment: - controlled - Will continue home dose Metoprolol, Losartan, HCTZ and clonidine (7) Depression Comment: - continue Wellbutrin (8) DVT prophylaxis Comment: - SQ heparin. (9) Full code status Status and Disposition: inpatient.
[2018-03-07] MEDS ORDERED: Potassium Chlor TAB* 20 MEQ TAB.ER PO ONE (10:46)
--- NOTE | 2018-03-07 12:19 | PN ---
Progress Note - Progress Note Date of Service: 03/07/18 SOAP: Subjective: []Patient known to me from prior outpatient evaluation for LE numbness. Had seizure and fell. Seen in ER where CT showed fracture anteriorly of C7. Neuro intact Objective: []Moves ext well Does feel heaviness in legs Assessment: []Stable fracture Plan: []Recommend treatment in [place] J collar Will be happy to follow as outpatient post discharge
[2018-03-07] MEDS ORDERED: Acetaminophen TAB* 325 MG PO PRN (17:28)
[2018-03-07] MEDS: Heparin VIAL(*) 5000 UNITS/ML VIAL (FIVE THOUSAND) SUBCUT SCH (20:40)
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
--- NOTE | 2018-03-07 23:26 | CONS ---
CONSULTATION REPORT: ADDENDUM: ASSESSMENT AND PLAN: The patient also had hypomagnesemia. This is another provoking cause for seizures. His magnesium level is within a near normal range now. [id number]/[facility] #: [id number] VON
--- NOTE | 2018-03-08 03:16 | EEG ---
ELECTROENCEPHALOGRAPHY: DATE OF SERVICE: 03/07/18 ORDERING PROVIDER: Jeanie Joseph DO DURATION OF THE STUDY: 10:37 - 11:01. MEDICATIONS: 1. Prilosec. 2. Augmentin. 3. Wellbutrin. 4. Catapres. 5. Folate. 6. HydroDIURIL. 7. Cozaar. 8. Multivitamin B1. 9. Toprol. 10. Trazodone. 11. Ativan. 12. Morphine. CLINICAL PROBLEM: Mr. Mando Fowler is a 57-year-old man with history of alcohol abuse who was recently prescribed Wellbutrin, ciprofloxacin, tramadol, presented with hypomagnesemia, who had hypomagnesemia, who presented with seizure complicated by subsequent fall and C7 vertebral fracture. He is currently wearing a [place] J collar. This EEG was ordered to evaluate for epileptiform abnormalities. CLINICAL STATE: Awake. REPORT: This is an extremely limited EEG due to diffuse muscle artifact and excessive sweating. The patient was unable to relax throughout the study. However, there seems to be excessive diffuse low voltage beta frequencies throughout the recording. There were no clear epileptiform discharges or electrographic seizures. Hyperventilation and photic stimulation were not performed. Single electrode EKG showed sinus tachycardia with a rate of 100 beats per minute. IMPRESSION: This is extremely limited awake EEG that showed excessive EMG muscle artifact as well as diffuse beta frequencies. Beta frequencies typically seen in the setting of benzodiazepine use. There were no clear electrographic seizures or epileptiform discharges. Since the seizure was a provoked event related to medication and electrolyte disturbance, no need to repeat a second EEG unless the patient continues to have seizures. [id number]/[facility] #: [id number] [facility]ENTER[facility]
[2018-03-08] MEDS: Heparin VIAL(*) 5000 UNITS/ML VIAL (FIVE THOUSAND) SUBCUT SCH (06:10)
[2018-03-08 07:51] LABS: ABS Basophils 0 10^3/ul (0-0.2); ABS Eosinophils 0.1 10^3/ul (0-0.6); ABS Lymphocytes 0.6 10^3/ul (1.0-4.8); ABS Monocytes 0.5 10^3/ul (0-0.8); ABS Nucleated RBC 0 10^3/ul; Eosinophil % 3.4 % (0-6); Hematocrit 27 % (42-52); Hemoglobin 9.3 g/dl (14.0-18.0); Lymphocyte % 19.7 % (25-47); Mean Corpuscular HGB Conc 34 g/dl (31-36); Mean Corpuscular Hemoglobin 35 pg (27-31); Mean Corpuscular Volume 102 fL (80-94); Mean Platelet Volume 7.5 um3 (7.4-10.4); Nucleated Red Blood Cells % 0.2; Platelet Count 106 10^3/ul (150-450); Red Blood Count 2.69 10^6/ul (4.00-5.40); Red Cell Distribution Width 14 % (10.5-15); White Blood Count 3.3 10^3/ul (3.5-10.8)
[2018-03-08 08:05] LABS: EGFR Non-African American 60.2 (>60)
[2018-03-08] MEDS ORDERED: Magnesium Sulf 4 GM/100 ML IV* 4,000 MG/100 ML BAG IVPB ONE (08:19)
[2018-03-08] MEDS ORDERED: Potassium Chlor TAB* 20 MEQ TAB.ER PO ONE (08:19)
[2018-03-08] MEDS ORDERED: buPROPion SR TAB.SR* 100 MG PO SCH (09:00)
[2018-03-08] MEDS: NS 0.9% 1000 ML* 1,000 ML IV SCH (09:27)
[2018-03-08] MEDS: Thiamine TAB* 100 MG TAB PO SCH (09:31)
[2018-03-08] MEDS: Multivitamins/Minerals TAB PO SCH (09:31)
[2018-03-08] MEDS: cloNIDine TAB* 0.1 MG PO SCH (09:31)
[2018-03-08] MEDS: Folic Acid TAB* 1 MG PO SCH (09:31)
[2018-03-08] MEDS: Amoxicillin/Clavulanate TAB* 500 MG PO SCH (09:31)
[2018-03-08] MEDS: Omeprazole CAP* 20 MG PO SCH (09:31)
[2018-03-08] MEDS: Losartan TAB* 25 MG PO SCH (09:31)
[2018-03-08] MEDS: Hydrochlorothiazide TAB* 25 MG PO SCH (09:31)
[2018-03-08 10:51] VITALS: BP 144/86
--- NOTE | 2018-03-08 11:56 | DCNOTE ---
Subjective Date of Service: 03/08/18 Interval History: pt reports "I feel really good today". Report pain is less in his neck. No further seizures. Denies abdominal pain, diarrhea. Reports good appetite. Denies withdrawal symptoms. Is not interested in ETOH rehab/counseling. no hx of thyroid disease in the past. Is agreeable to outpt workup with endocrine. Reviewed discharge plan. Objective Active Medications: Acetaminophen (Tylenol Tab*) 650 mg PO Q6H PRN PRN Reason: FEVER/PAIN Amoxicillin/Clavulanate Potassium (Augmentin Tab*) 500 mg PO BID [facility] Last Admin: 03/08/18 09:31 Dose: 500 mg Bupropion HCl (Wellbutrin Sr Tab*) 100 mg PO DAILY [facility] Last Admin: 03/08/18 09:32 Dose: 100 mg Clonidine HCl (Catapres Tab*) 0.2 mg PO DAILY [facility] Last Admin: 03/08/18 09:31 Dose: 0.2 mg Folic Acid (Folvite Tab*) 1 mg PO DAILY [facility] Last Admin: 03/08/18 09:31 Dose: 1 mg Heparin Sodium (Porcine) (Heparin Vial(*)) 5,000 units SUBCUT Q8HR [facility] Last Admin: 03/08/18 06:10 Dose: 5,000 units Hydrochlorothiazide (Hydrodiuril Tab*) 25 mg PO DAILY [facility] Last Admin: 03/08/18 09:31 Dose: 25 mg Lorazepam (Ativan Tab(*)) 0 mg PO Q2H PRN; Protocol PRN Reason: ANXIETY Losartan Potassium (Cozaar Tab*) 100 mg PO DAILY [facility] Last Admin: 03/08/18 09:31 Dose: 100 mg Metoprolol Succinate (Toprol Xl Tab*) 50 mg PO BEDTIME [facility] Last Admin: 03/07/18 20:36 Dose: 50 mg Morphine Sulfate (Morphine Vial*) 4 mg IV Q4H PRN PRN Reason: PAIN - MILD Multivitamins/Minerals (Theragran/Minerals Tab*) 1 tab PO DAILY [facility] Last Admin: 03/08/18 09:31 Dose: 1 tab Omeprazole (Prilosec Cap*) 20 mg PO BID AC [facility] Last Admin: 03/08/18 09:31 Dose: 20 mg Thiamine HCl (Vitamin B-1 Tab*) 100 mg PO DAILY [facility] Last Admin: 03/08/18 09:31 Dose: 100 mg Trazodone HCl (Desyrel Tab*) 100 mg PO BEDTIME [facility] Last Admin: 03/07/18 22:18 Dose: 100 mg Vital Signs - 8 hr 03/08/18 03/08/18 06:00 10:28 Temperature 98.6 F 99.1 F Pulse Rate 73 80 Respiratory 16 18 Rate Blood Pressure 148/88 144/86 (mmHg) O2 Sat by Pulse 97 97 Oximetry Oxygen Devices in Use Now: None Appearance: 57 yo male A+O x3 in NAD Eyes: No Scleral Icterus, PERRLA Neck: - - [place] J collar intact Respiratory: Symmetrical Chest Expansion and Respiratory Effort, Clear to Auscultation Cardiovascular: NL Sounds; No Murmurs; No JVD, RRR, No Edema Abdominal: NL Sounds; No Tenderness; No Distention Extremities: No Edema Skin: No Rash or Ulcers, No Nodules or Sclerosis Neurological: Alert and Oriented x 3, NL Sensation, NL Gait, NL Muscle Strength and Tone Lines/Tubes/Other Access: Clean, Dry and Intact Peripheral IV Nutrition: Taking PO's Result Diagrams: 03/08/18 06:59 03/08/18 06:59 Assess/Plan/Problems-Billing Assessment: 57 yo male with a PMH of HTN, Alcoholism with hx of DTs and Depression who presented to the ER after having a seizure at home (no prior hx of seizures) who was found to have suffered a C7 fx. Pt with recent diagnosis of diverticulitis on Cipro/Flagyl. - Patient Problems (1) Seizure Comment: - no further seizures - EEG normal - Neuro consult - suspects possible seizure was multifactorial with alcohol withdrawal, and cipro. Does not recommned medication at this time (2) C7 cervical fracture Comment: - CT showing fracture- continue [place] J collar - Neurosurgery consult appreciated - plan to f/u as outpatient (3) Abnormal thyroid function test Comment: -abnormal thyroid panel. No hx of thyroid disease. Discussed with attending due to unclear picture of thyroid test results- plan for outpatient work up [facility] endocrine - discussed with patient who will follow up with Dr. Madrid as outpatient (4) Electrolyte abnormality Comment: - treated deficiencies - send home on oral magnesium & potassium - repeat labs in 2 days as outpt - follow up with PCP in 3 days (5) Alcohol abuse Comment: - No signs of alcohol withdrawal at this time. -pt refuses counseling (6) Diverticulitis Comment: - continue Augmentin last day 03/11 - dx 03/04 by pcp started on cipro/flagyl which were DC'd on admission - (7) HTN (hypertension) Comment: - controlled - Will continue home dose Metoprolol, Losartan, HCTZ and clonidine (8) Depression Comment: - continue Wellbutrin (9) DVT prophylaxis Comment: - SQ heparin. (10) Full code status Status and Disposition: inpatient. Stable for DC to home with follow up with PCP wednesday and referral to Dr. Madrid
--- NOTE | 2018-03-08 22:40 | DS ---
DISCHARGE SUMMARY: DATE OF ADMISSION: 03/07/18 DATE OF DISCHARGE: 03/08/18 PROVIDER: Cali Soares NP ATTENDING PHYSICIAN: Dr. Key * (report dictated by Cali Soares NP). PRIMARY CARE PROVIDER: Grazyna Menon NP REFERRAL TO: Dr. Rajat Madrid. DISCHARGE DIAGNOSES: 1. Seizure, suspect multifactorial secondary to alcohol withdrawal and ciprofloxacin (decreases seizure threshold). 2. C7 fracture. 3. Abnormal thyroid tests. 4. Electrolytes abnormalities. 5. Thrombocytopenia secondary to alcohol abuse. SECONDARY DIAGNOSES: 1. Recent diagnosis of diverticulitis. 2. Hypertension. 3. Alcohol abuse. 4. Osteoarthritis. 5. Depression. 6. Peripheral neuropathy. 7. Chronic kidney disease. DISCHARGE MEDICATIONS: 1. Clonidine 0.2 mg p.o. daily. 2. Metoprolol succinate XL 50 mg p.o. at bedtime. 3. Losartan 100 mg p.o. daily. 4. Tramadol HCL 50 mg p.o. t.i.d. p.r.n. 5. Trazodone HCL 100 mg p.o. at bedtime. 6. Hydrochlorothiazide 25 mg p.o. daily. 7. Zyrtec 10 mg p.o. daily. 8. Cialis 10 to 20 mg p.o. at bedtime. 9. Multivitamin with mineral 1 tab p.o. daily. 10. Thiamin HCL 100 mg p.o. daily. 11. Omeprazole 20 mg p.o. b.i.d. 12. Folic acid 1 mg p.o. daily. 13. Bupropion 100 mg p.o. b.i.d. 14. Potassium chloride 20 mEq p.o. daily (new medication). 15. Magnesium oxide 800 mg p.o. daily (new medication). 16. Augmentin 500 mg p.o. b.i.d. (new medication in replacement of Cipro and Flagyl for recent diverticulitis). HISTORY OF PRESENT ILLNESS AND HOSPITAL COURSE: Please see history and physical by Dr. Jeanie Joseph for full admission details, but in summary this is a 57-year-old male with a past medical history of alcoholism, depression, hypertension, and recent diagnoses of diverticulitis on Cipro and Flagyl, who presented to the emergency department after having a seizure at home. The witnessed the seizure in which it was reported the patient was sitting on a chair on the dining room, finishing eating, and he got up to take his plate to the kitchen, at approximately 9:50 p.m. on 03/06/18, when he suddenly fell backwards and the described all 4 limbs shaking while be unconscious, grinding his teeth and becoming quite rigid, reporting the seizure lasted approximately 2 to 3 minutes. She reports that when he came to, he was very disoriented. The patient has no history of prior seizure in the past. It is reported that he stopped drinking cold turkey approximately 5 days prior. Also , recently he was seen by his primary care provider and diagnosed with diverticulitis and started on Ciprofloxacin and Flagyl. The patient was seen in the emergency department, underwent a CT of his neck, which showed he suffered a C7 fracture. He was admitted to the hospitalist service. He was seen in consultation by neurologist, Dr Ghazala Auguste who thought the seizure was multifactorial secondary to alcohol withdrawal and possibly ciprofloxacin. He recommended that the patient be discontinued of his tramadol and decrease Wellbutrin to 100 mg daily down from twice a day. Recommendation to follow up with his primary care provider and/or psychiatrist who can ultimately change him from a different antidepressant or he may be able to continue the same medication, but with a lower dose. The patient underwent an EEG, which was unremarkable. The neurologist thought that the possible seizure could be drug- induced from the following medications in combination with the alcohol withdrawal. His Wellbutrin, ciprofloxacin, and tramadol are all known to lower this seizure threshold. The patient was seen in consultation by neurosurgeon, Dr. Calixto for his C-7 vertebral fracture. The patient has no noted weakness on exam. He was placed in a [place] J- collar on admission and he is going to be discharged home with this, in which he is instructed that he can take it off to shower keeping his head straight and avoiding extending his neck back. Otherwise, the patient is to stay in the brace and follow up with Neurosurgery as an outpatient. The patient was found to have dependant peripheral neuropathy, which was most likely due to both hereditary neuropathy such as Charcot-She tooth given his hammer toes as well as alcohol neuropathy. B12 vitamin was checked and is normal. Neurology recommends abstaining from alcohol and continuing a thiamine supplementation daily. The patient's electrolytes were noted to be abnormal throughout hospitalization. He underwent magnesium and potassium supplementation which he will be sent home on. The patient was noted to have severe magnesium depletion of 0.9 on admission. The patient is noted to have chronic kidney disease, which he presented around hid baseline between 1.2 and 1.4. The patient was noted to have abnormal thyroid panel with a TSH of 6.40. His free T4 is 1.23 with a free T3 of 2.40 and a total T3 of 48 and a thyroid peroxidase antibody, which was normal. Discussed this with Dr. Key, it is unclear of the pattern of his abnormal thyroid tests, as they do not quite fit with hypothyroidism or hyperthyroidism. Recommendation at this point is to follow up with strap cutter, Dr. Rajat Madrid for further evaluation and determination of abnormal thyroid testing. The patient is agreeable. DISCHARGE PLAN: Followup with primary care provider Grazyna Menon NP on this coming Wednesday. The patient has been ordered followup labs and he was instructed to go for a CBC, CMP, and a magnesium level. The patient is being referred to Dr. Rajat Madrid for abnormal thyroid tests. Follow up with neurosurgeon, Dr. Calixto. The patient was instructed to keep the [place] J-collar on at all times other than he may shower with mindfulness to keep his head and neck straight with little movement being very careful not to flex or extend. TIME SPENT: Approximately 60 minutes was spent on this discharge. CALI SOARES NP [id number]/[facility] #: [id number] VON
--- NOTE | 2018-03-09 01:08 | PN ---
NEUROLOGY PROGRESS NOTE: DATE OF SERVICE: 03/08/18 REASON FOR NEUROLOGICAL EVALUATION: Seizures. CHIEF COMPLAINT: No seizures overnight. SUBJECTIVE: The patient is a 57-year-old man with history of alcohol abuse, who recently stopped consuming alcohol, was placed on Wellbutrin 1 month ago and recently started on ciprofloxacin for diverticulosis. The patient presented with a witnessed seizure. He rested comfortably overnight with no evidence of seizures. He had an EEG that showed no electrographic seizures, but diffuse low voltage beta frequencies. The patient is in good spirits and wants to go home. He will abstain from alcohol use. REVIEW OF SYSTEMS: He denied any chest pain, shortness of breath, or palpitations. MEDICATIONS: 1. Acetaminophen 650 mg every 6 hours as needed for pain. 2. Augmentin 500 mg twice daily. 3. Bupropion 100 mg daily. 4. Clonidine 0.2 mg p.o. daily. 5. Folic acid 1 mg p.o. daily. 6. Hydrochlorothiazide 25 mg p.o. daily. 7. Losartan 100 mg p.o. daily. 8. Magnesium sulfate 4 g x1. 9. Metoprolol 50 mg p.o. at bedtime. 10. Morphine 4 mg IV every 4 hours as needed for pain. 11. Multivitamins. 12. Thiamine. 13. Trazodone 100 mg p.o. at bedtime. PHYSICAL EXAMINATION: Vitals: Temperature of 99.1, heart rate 80, respiratory rate 18, oxygen saturation of 97%, blood pressure of 144/86. Well-nourished, well-developed man, in no acute distress. Head: Atraumatic, normocephalic. He has a [place] J collar on. He is awake, alert, and oriented to person, place, time, and general circumstances. There is no aphasia or dysarthria. Extraocular muscles are intact. Pupils equal, round, and reactive to light. Normal facial symmetry. Motor Examination: 5/5 in the upper and lower extremities without any focal weakness. Reflexes: 2/2 throughout except for 0/ 0 at the ankle. Sensation: Distal to proximal sensory gradient demarcated at the ankles bilaterally. He has a 3-second vibration at the great toes bilaterally. IMPRESSION AND RECOMMENDATIONS: 1. Seizures, most likely related to alcohol withdrawal, and medication induced in the setting of tramadol, ciprofloxacin, and Wellbutrin. Ciprofloxacin has been converted to Augmentin. Tramadol has been discontinued and Wellbutrin was decreased to 100 mg daily. 2. C7 vertebral fracture and cervical spondylosis, [id number] spinal canal narrowing. He will follow up with Neurosurgery as an outpatient. He has a [place] J collar on. 3. 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 Abstain from alcohol use and continue thiamine supplementation. TIME SPENT: I spent 20 minutes discussing the treatment plan as mentioned above with the patient at bedside. I have no further neurological recommendations. [id number]/[facility] #: [id number] [facility]
== END 2018-03-08 13:25 | disposition home or self-care (01) ==
LOC: ED 22:56 → MED 03-07 01:24
PROVIDERS: ADMIT Hospitalist; ATTEND Internal Medicine
DX: R56.9 Unspecified convulsions (principal); S12.600A Unspecified displaced fracture of seventh cervical vertebra, initial encounter for closed fracture; K57.92 Diverticulitis of intestine, part unspecified, without perforation or abscess without bleeding; R94.6 Abnormal results of thyroid function studies; E87.8 Other disorders of electrolyte and fluid balance, not elsewhere classified; D69.59 Other secondary thrombocytopenia; I10 Essential (primary) hypertension; F10.10 Alcohol abuse, uncomplicated; M19.90 Unspecified osteoarthritis, unspecified site; F32.9 Major depressive disorder, single episode, unspecified; G62.9 Polyneuropathy, unspecified; N18.9 Chronic kidney disease, unspecified; W19.XXXA Unspecified fall, initial encounter; Y92.9 Unspecified place or not applicable; M54.2 Cervicalgia; R41.3 Other amnesia; F17.210 Nicotine dependence, cigarettes, uncomplicated
CPT/HCPCS: 36415; 70450; 72125; 80048; 80053; 80320; 82550; 82607; 82977; 83605; 83735; 84439; 84443; 84479; 84481; 84482; 85025; 85610; 86376; 86800; 93005; 95816; 96365; 96366; 96375; 99285; A9270-GY; G0378; G0480; J1644; J2060; J3411; J3475

== ENCOUNTER 2020-09-21 02:52 | Inpatient (IN) ==
[2020-09-21 03:46] LABS: ABS Monocytes 0.4 10^3/ul (0-0.8); ABS Neutrophils 5.4 10^3/ul (1.5-7.7); Eosinophil % 0.4 %; Hematocrit 39 % (42-52); Hemoglobin 12.6 g/dL (14.0-18.0); Mean Corpuscular HGB Conc 33 g/dL (31-36); Mean Corpuscular Hemoglobin 29 pg (27-31); Mean Corpuscular Volume 89 fL (80-94); Mean Platelet Volume 7.5 fL (7.4-10.4); Platelet Count 242 10^3/uL (150-450); Red Blood Count 4.32 10^6 /uL (4.18-5.48); Red Cell Distribution Width 18 % (10-15); White Blood Count 6.8 10^3/uL (3.5-10.8)
[2020-09-21 04:10] LABS: ALT 16 U/L (7-52); AST 27 U/L (13-39); Albumin 4.3 g/dL (3.2-5.2); Albumin/Globulin Ratio 1.6 (1-3); Alkaline Phosphatase 86 U/L (34-104); Anion Gap 11 mmol/L (2-11); Blood Urea Nitrogen 31 mg/dL (6-24); CO2 Carbon Dioxide 20 mmol/L (22-32); Calcium 8.4 mg/dL (8.6-10.3); Chloride 110 mmol/L (101-111); EGFR African American 56.9 (>60); EGFR Non-African American 47.1 (>60); Globulin 2.7 g/dL (2-4); Glucose 99 mg/dL (70-100); Potassium 3.8 mmol/L (3.5-5.0); Sodium 141 mmol/L (135-145)
[2020-09-21 04:15] LABS: Acetaminophen < 15 mcg/mL; Alcohol, S 167 mg/dL (<10); Salicylate < 2.50 mg/dL (<30)
[2020-09-21 04:30] LABS: TSH Ultra Thyroid Stim Horm 2.49 mcIU/mL (0.34-5.60)
[2020-09-21] MEDS ORDERED: Ondansetron ODT 4 mg TAB 4 MG TAB SL PRN (05:19)
[2020-09-21] MEDS ORDERED: Ondansetron ODT 4 mg TAB 4 MG TAB ONE (05:23)
[2020-09-21] MEDS ORDERED: Al Hydrox/Mg Hydrox/Simet LIQ 30 ML UDC PO PRN (12:18)
[2020-09-21] MEDS ORDERED: Nicotine PATCH 14 MG/24 HR PATCH ONE (17:24)
[2020-09-21] MEDS ORDERED: Nicotine PATCH 7 MG/24 HR PATCH TRANSDERM SCH (17:31)
[2020-09-21] MEDS: Nicotine PATCH 14 MG/24 HR PATCH TRANSDERM SCH (18:13)
[2020-09-21] MEDS: CMCS: Doxepin 25 mg CAP (NF) PO SCH (21:25)
[2020-09-22] MEDS ORDERED: LORazepam PO 0-6 for WAM protocol PO SCH (04:00)
[2020-09-22] MEDS: Nicotine PATCH 14 MG/24 HR PATCH TRANSDERM SCH (08:39)
[2020-09-22] MEDS: Senna TAB 8.6 mg TAB PO SCH (08:41)
[2020-09-22] MEDS: Aspirin EC 81 mg TAB.EC (enteric coated) PO SCH (08:42)
[2020-09-22] MEDS ORDERED: buPROPion SR 100 mg TAB.SR PO SCH (09:00)
[2020-09-22] MEDS ORDERED: Multivitamins/Minerals TAB PO SCH (09:00)
[2020-09-22] MEDS ORDERED: Vitamin THERAPEUTIC TAB PO SCH (09:00)
[2020-09-22] MEDS: CMCS: Doxepin 25 mg CAP (NF) PO SCH (22:01)
[2020-09-23] MEDS: Nicotine PATCH 14 MG/24 HR PATCH TRANSDERM SCH (10:50)
[2020-09-23] MEDS: Aspirin EC 81 mg TAB.EC (enteric coated) PO SCH (10:52)
[2020-09-23] MEDS: Senna TAB 8.6 mg TAB PO SCH (10:52)
[2020-09-23] MEDS: CMCS: Doxepin 25 mg CAP (NF) PO SCH (21:49)
[2020-09-24 08:23] LABS: HDL Cholesterol 69.9 mg/dL
[2020-09-24] MEDS: Nicotine PATCH 14 MG/24 HR PATCH TRANSDERM SCH (09:54)
[2020-09-24] MEDS: Aspirin EC 81 mg TAB.EC (enteric coated) PO SCH (09:55)
[2020-09-24] MEDS: Senna TAB 8.6 mg TAB PO SCH (09:55)
[2020-09-24] MEDS: CMCS: Doxepin 25 mg CAP (NF) PO SCH (21:39)
[2020-09-25] MEDS: Nicotine PATCH 14 MG/24 HR PATCH TRANSDERM SCH (09:20)
[2020-09-25] MEDS: Aspirin EC 81 mg TAB.EC (enteric coated) PO SCH (09:21)
[2020-09-25] MEDS: Senna TAB 8.6 mg TAB PO SCH (09:22)
[2020-09-25] MEDS: CMCS: Doxepin 25 mg CAP (NF) PO SCH (19:26)
[2020-09-26] MEDS: Nicotine PATCH 14 MG/24 HR PATCH TRANSDERM SCH (08:38)
[2020-09-26] MEDS: Senna TAB 8.6 mg TAB PO SCH (08:39)
[2020-09-26] MEDS: Aspirin EC 81 mg TAB.EC (enteric coated) PO SCH (08:41)
[2020-09-26] MEDS: CMCS: Doxepin 25 mg CAP (NF) PO SCH (21:51)
[2020-09-27 07:53] VITALS: BP 127/81
[2020-09-27] MEDS: Senna TAB 8.6 mg TAB PO SCH (09:58)
[2020-09-27] MEDS: Aspirin EC 81 mg TAB.EC (enteric coated) PO SCH (09:58)
[2020-09-27] MEDS: Nicotine PATCH 14 MG/24 HR PATCH TRANSDERM SCH (10:00)
== END 2020-09-27 12:15 | DRG 775 ==
LOC: ED 02:52 → BSU 13:24
PROVIDERS: ADMIT Psychiatry & Neurology Psychiatry; ATTEND Psychiatry & Neurology Psychiatry

== ENCOUNTER 2023-04-01 12:58 | Inpatient (IN) ==
[2023-04-01 13:33] LABS: ABS Basophils 0.1 10^3/uL (0.0-0.1); ABS Eosinophils 0.1 10^3/uL (0.0-0.5); ABS Lymphocytes 0.7 10^3/uL (1.0-4.8); ABS Monocytes 0.7 10^3/uL (0.0-1.1); ABS Neutrophils 15.6 10^3/uL (1.5-7.6); ABS Nucleated RBC 0.02 10^3/ul; Eosinophil % 0.6 %; Hematocrit 40.4 % (38-53); Hemoglobin 13.2 g/dL (13.2-16.3); Mean Corpuscular Hemoglobin 27.3 pg (27-33); Mean Corpuscular Hgb Conc 32.6 g/dL (31-36); Mean Corpuscular Volume 83.8 fL (80-97); Mean Platelet Volume 8.2 fL (7.5-11.2); Nucleated Red Blood Cells % 0.1 %/100WBC (0.0-0.8); Platelet Count 212 10^3/uL (150-450); Red Blood Count 4.82 10^6/uL (4.06-5.63); White Blood Count 17.1 10^3/uL (3.6-10.2)
[2023-04-01 13:55] LABS: Albumin 4.6 g/dL (3.2-5.2); Albumin/Globulin Ratio 1.4 (1-3); Calcium 9.6 mg/dL (8.6-10.3); Creatinine, Serum 1.68 mg/dL (0.67-1.17); Globulin 3.4 g/dL (2-4); Total Bilirubin 0.4 mg/dL (0.2-1.0); eGFR CKD-EPI 45.1 (>60)
[2023-04-01] MEDS ORDERED: cefTRIAXone 2 gm/50 mL D5W 2 GM/50 ML BAG IV ONE (14:04)
[2023-04-01 14:49] LABS: Urine Appearance Cloudy; Urine Bilirubin Negative (Negative); Urine Blood Negative (Negative); Urine Color Yellow; Urine Glucose Negative (Negative); Urine Ketones Negative (Negative); Urine Nitrite Positive (Negative); Urine Protein Negative (Negative); Urine Specific Gravity 1.014 (1.002-1.030); Urine Urobilinogen Negative (Negative)
[2023-04-01 14:54] LABS: Magnesium 1.9 mg/dL (1.9-2.7)
[2023-04-01 14:59] LABS: Urine Bacteria 1+ (Absent); Urine Red Blood Cell 2+(6-10/hpf) (Absent); Urine Squamous Epithelial Cell Present (Absent); Urine White Blood Cell 3+(>20/hpf) (Absent)
[2023-04-01 15:00] LABS: High Sensitivity Troponin 1 Hr 4 pg/mL (<20)
[2023-04-01] MEDS: Enoxaparin 40 MG/0.4 ML SYR SUBCUT SCH (15:17)
[2023-04-01] MEDS ORDERED: Zosyn per Pharmacy NOTE FOLLOW UP SCH (16:00)
[2023-04-01] MEDS ORDERED: Lactated Ringers 1000 ml BAG 1,000 ML IV SCH (18:00)
[2023-04-01] MEDS ORDERED: hydrALAZINE 20 mg/ml 1 ML Vial IV IV SLOW PU ONE (23:45)
[2023-04-02] MEDS ORDERED: hydrALAZINE 20 mg/ml 1 ML Vial IV IV SLOW PU ONE (02:50)
[2023-04-02 06:03] LABS: ABS Lymphocytes 1.1 10^3/uL (1.0-4.8); ABS Monocytes 0.9 10^3/uL (0.0-1.1); ABS Neutrophils 14.9 10^3/uL (1.5-7.6); Hematocrit 35.9 % (38-53); Hemoglobin 11.9 g/dL (13.2-16.3); Lymphocyte % 6.3 %; Mean Corpuscular Hemoglobin 27.4 pg (27-33); Mean Corpuscular Hgb Conc 33.1 g/dL (31-36); Mean Corpuscular Volume 82.7 fL (80-97); Mean Platelet Volume 8.7 fL (7.5-11.2); Platelet Count 253 10^3/uL (150-450); Red Blood Count 4.33 10^6/uL (4.06-5.63); Red Cell Distribution Width 18.2 % (12-17); White Blood Count 16.9 10^3/uL (3.6-10.2)
[2023-04-02] MEDS ORDERED: Morphine 2 MG/ML SYRINGE IV ONE (06:09)
[2023-04-02 06:46] LABS: Calcium 9.8 mg/dL (8.6-10.3); Creatinine, Serum 1.2 mg/dL (0.67-1.17); Magnesium 1.8 mg/dL (1.9-2.7); Potassium 3.9 mmol/L (3.5-5.0); eGFR CKD-EPI 67.5 (>60)
[2023-04-02] MEDS ORDERED: Magnesium Sulfate 2 gm BAG 2 GM/50 ML BAG IVPB ONE (07:18)
[2023-04-02] MEDS ORDERED: hydrALAZINE 20 mg/ml 1 ML Vial IV IV SLOW PU PRN (07:39)
[2023-04-02] MEDS ORDERED: Senna TAB 8.6 mg TAB PO PRN (07:42)
[2023-04-02] MEDS ORDERED: Polyethylene Glycol 3350 17 GM PACKET PO PRN (07:42)
[2023-04-02] MEDS ORDERED: Magnesium Hydroxide LIQ 30 ML UDC PO PRN (07:42)
[2023-04-02] MEDS ORDERED: Piperacillin/Tazobac 3.375 BAG 3.375 GM/100 ML BAG IV ONE (08:00)
[2023-04-02] MEDS: Aspirin EC 81 mg TAB.EC (enteric coated) PO SCH (08:31)
[2023-04-02] MEDS: Vibegron 75 MG TAB (NF) PO SCH (09:09)
[2023-04-02] MEDS ORDERED: cefTRIAXone 1 gm/50 mL D5W 1 GM/50 ML BAG IV SCH (14:00)
[2023-04-02] MEDS: ZOSYN 3.375 GM Q8H per EXTENDED INFUSION IV SCH ×2 (14:11→20:08)
[2023-04-02] MEDS: Enoxaparin 40 MG/0.4 ML SYR SUBCUT SCH (14:11)
[2023-04-03] MEDS: ZOSYN 3.375 GM Q8H per EXTENDED INFUSION IV SCH (03:59)
[2023-04-03 06:52] LABS: ABS Eosinophils 0.2 10^3/uL (0.0-0.5); ABS Lymphocytes 1.8 10^3/uL (1.0-4.8); ABS Monocytes 0.7 10^3/uL (0.0-1.1); ABS Neutrophils 6.7 10^3/uL (1.5-7.6); Eosinophil % 1.8 %; Hematocrit 33.3 % (38-53); Hemoglobin 10.9 g/dL (13.2-16.3); Lymphocyte % 19.2 %; Mean Corpuscular Hemoglobin 27.4 pg (27-33); Mean Corpuscular Hgb Conc 32.8 g/dL (31-36); Mean Corpuscular Volume 83.4 fL (80-97); Mean Platelet Volume 8.5 fL (7.5-11.2); Platelet Count 191 10^3/uL (150-450); Red Blood Count 3.99 10^6/uL (4.06-5.63); Red Cell Distribution Width 18.1 % (12-17); White Blood Count 9.4 10^3/uL (3.6-10.2)
[2023-04-03 07:15] LABS: Calcium 9.2 mg/dL (8.6-10.3); Creatinine, Serum 1.29 mg/dL (0.67-1.17); Magnesium 1.9 mg/dL (1.9-2.7); Potassium 3.6 mmol/L (3.5-5.0); eGFR CKD-EPI 61.9 (>60)
[2023-04-03] MEDS ORDERED: Potassium Chlor 10 meq TAB PO ONE (07:30)
[2023-04-03] MEDS: Aspirin EC 81 mg TAB.EC (enteric coated) PO SCH (08:41)
[2023-04-03] MEDS: Vibegron 75 MG TAB (NF) PO SCH (08:48)
[2023-04-03] MEDS: Acetaminophen IV 1 GM/100ML 1,000 MG/100 ML BAG IV SCH ×2 (11:45→22:03)
[2023-04-03] MEDS: Enoxaparin 40 MG/0.4 ML SYR SUBCUT SCH (15:44)
[2023-04-04] MEDS: Acetaminophen IV 1 GM/100ML 1,000 MG/100 ML BAG IV SCH ×2 (03:26→10:15)
[2023-04-04 06:33] LABS: ABS Basophils 0.1 10^3/uL (0.0-0.1); ABS Eosinophils 0.4 10^3/uL (0.0-0.5); ABS Lymphocytes 1.4 10^3/uL (1.0-4.8); ABS Monocytes 0.7 10^3/uL (0.0-1.1); ABS Neutrophils 6.3 10^3/uL (1.5-7.6); Eosinophil % 4.7 %; Hematocrit 35.9 % (38-53); Hemoglobin 11.9 g/dL (13.2-16.3); Lymphocyte % 15.6 %; Mean Corpuscular Hemoglobin 27.5 pg (27-33); Mean Corpuscular Volume 83.3 fL (80-97); Mean Platelet Volume 8.1 fL (7.5-11.2); Nucleated Red Blood Cells % 0.1 %/100WBC (0.0-0.8); Platelet Count 194 10^3/uL (150-450); Red Blood Count 4.32 10^6/uL (4.06-5.63); Red Cell Distribution Width 17.8 % (12-17); White Blood Count 8.8 10^3/uL (3.6-10.2)
[2023-04-04 06:50] LABS: Calcium 9.4 mg/dL (8.6-10.3); Creatinine, Serum 1.11 mg/dL (0.67-1.17); Magnesium 1.8 mg/dL (1.9-2.7); Potassium 3.8 mmol/L (3.5-5.0); eGFR CKD-EPI 74.2 (>60)
[2023-04-04] MEDS ORDERED: Magnesium Sulfate 2 gm BAG 2 GM/50 ML BAG IVPB ONE (07:35)
[2023-04-04] MEDS: Aspirin EC 81 mg TAB.EC (enteric coated) PO SCH (09:03)
[2023-04-04] MEDS: Vibegron 75 MG TAB (NF) PO SCH (10:10)
[2023-04-04 14:50] VITALS: BP 117/71
== END 2023-04-04 16:45 | disposition home or self-care (01) | DRG 52 ==
LOC: ED 12:58 → EDHOLD 12:58 → MED 22:25
PROVIDERS: ADMIT Hospitalist; ATTEND Hospitalist

== ENCOUNTER 2023-04-09 11:09 | Inpatient (IN) ==
[2023-04-09 11:43] LABS: Venous Bicarbonate HCO3 23.3 mmol/L (24-28)
[2023-04-09 11:53] LABS: ABS Eosinophils 0.4 10^3/uL (0.0-0.5); ABS Lymphocytes 1.3 10^3/uL (1.0-4.8); ABS Monocytes 0.7 10^3/uL (0.0-1.1); ABS Neutrophils 6.2 10^3/uL (1.5-7.6); Eosinophil % 4.9 %; Hematocrit 35.1 % (38-53); Hemoglobin 11.4 g/dL (13.2-16.3); Lymphocyte % 15.3 %; Mean Corpuscular Hemoglobin 27.3 pg (27-33); Mean Corpuscular Hgb Conc 32.5 g/dL (31-36); Mean Platelet Volume 8.2 fL (7.5-11.2); Platelet Count 230 10^3/uL (150-450); Red Blood Count 4.18 10^6/uL (4.06-5.63); Red Cell Distribution Width 17.6 % (12-17); White Blood Count 8.7 10^3/uL (3.6-10.2)
[2023-04-09 12:11] LABS: ALT 10 U/L (7-52); AST 16 U/L (13-39); Albumin 4.3 g/dL (3.2-5.2); Albumin/Globulin Ratio 1.3 (1-3); Alkaline Phosphatase 93 U/L (35-149); Anion Gap 5 mmol/L (2-16); Blood Urea Nitrogen 40 mg/dL (6-24); CO2 Carbon Dioxide 29 mmol/L (22-32); Calcium 9.4 mg/dL (8.6-10.3); Chloride 107 mmol/L (101-111); Creatinine, Serum 1.88 mg/dL (0.67-1.17); Globulin 3.2 g/dL (2-4); Glucose 110 mg/dL (70-100); Potassium 4.4 mmol/L (3.5-5.0); Sodium 141 mmol/L (135-145); Total Bilirubin 0.3 mg/dL (0.2-1.0); Total Protein 7.5 g/dL (6.4-8.9); eGFR CKD-EPI 39.4 (>60)
[2023-04-09 12:39] LABS: Alcohol, S < 13 mg/dL (<13)
[2023-04-09 13:24] LABS: Magnesium 2.5 mg/dL (1.9-2.7)
[2023-04-09] MEDS ORDERED: Lactated Ringers 1000 ml BAG 1,000 ML IV ONE (13:48)
[2023-04-09] MEDS ORDERED: Iodixanol (CONTRAST) 320 MG/ML 100 ML SDV IV ONE (14:09)
[2023-04-09 16:24] LABS: Urine Appearance Cloudy; Urine Bilirubin Negative (Negative); Urine Blood Negative (Negative); Urine Color Amber; Urine Glucose Negative (Negative); Urine Ketones Negative (Negative); Urine Nitrite Negative (Negative); Urine Protein Negative (Negative); Urine Specific Gravity 1.027 (1.002-1.030); Urine Urobilinogen Negative (Negative)
[2023-04-09] MEDS ORDERED: Senna TAB 8.6 mg TAB PO PRN ×2 (20:08→20:16)
[2023-04-09] MEDS ORDERED: Ondansetron 4 mg VIAL 2 MG/ML 2 ml VIAL IV PRN (20:08)
[2023-04-09] MEDS ORDERED: Polyethylene Glycol 3350 17 GM PACKET PO PRN (20:08)
[2023-04-09 20:37] LABS: Urine Benzodiazepine Screen None Detected (None Detect); Urine Buprenorphine Screen None Detected (None Detect); Urine Cannabinoids Screen Presumptive Positive (None Detect); Urine Fentanyl Screen None Detected (None Detect); Urine Hydrocodone Screen None Detected (None Detect); Urine Opiates Screen None Detected (None Detect)
[2023-04-09] MEDS ORDERED: Lactated Ringers 1000 ml BAG 1,000 ML IV SCH (21:00)
[2023-04-09 22:06] LABS: Folate > 20.00 ng/mL (5.90-24.80)
[2023-04-09 22:07] LABS: Vitamin B12 752 pg/mL (180-914)
[2023-04-10] MEDS: Heparin 5000 UNITS/ML 1 mL VIAL SUBCUT SCH ×3 (06:06→20:57)
[2023-04-10 07:28] LABS: ABS Basophils 0.1 10^3/uL (0.0-0.1); ABS Eosinophils 0.4 10^3/uL (0.0-0.5); ABS Lymphocytes 1.7 10^3/uL (1.0-4.8); ABS Monocytes 0.5 10^3/uL (0.0-1.1); ABS Neutrophils 4.3 10^3/uL (1.5-7.6); Eosinophil % 6.3 %; Hematocrit 34.4 % (38-53); Hemoglobin 11.2 g/dL (13.2-16.3); Lymphocyte % 24.3 %; Mean Corpuscular Hemoglobin 27.1 pg (27-33); Mean Corpuscular Hgb Conc 32.6 g/dL (31-36); Mean Platelet Volume 7.9 fL (7.5-11.2); Nucleated Red Blood Cells % 0.1 %/100WBC (0.0-0.8); Platelet Count 221 10^3/uL (150-450); Red Blood Count 4.14 10^6/uL (4.06-5.63); Red Cell Distribution Width 17.5 % (12-17)
[2023-04-10 07:43] LABS: Calcium 9.1 mg/dL (8.6-10.3); Creatinine, Serum 1.36 mg/dL (0.67-1.17); Potassium 3.7 mmol/L (3.5-5.0); eGFR CKD-EPI 58.1 (>60)
[2023-04-10] MEDS: Magnesium Chloride EC 64 mgTAB PO SCH (08:16)
[2023-04-10] MEDS: Aspirin EC 81 mg TAB.EC (enteric coated) PO SCH (08:17)
[2023-04-10] MEDS ORDERED: hydrALAZINE 20 mg/ml 1 ML Vial IV IV SLOW PU ONE (08:38)
[2023-04-10] MEDS: Vibegron 75 MG TAB (NF) PO SCH (10:04)
[2023-04-10] MEDS ORDERED: Gadoteridol (CONTRAST) 279.3 MG/ML 10 ML IV ONE (17:21)
[2023-04-11 00:15] LABS: C Reactive Protein 20.77 mg/L (<8.01)
[2023-04-11 00:31] LABS: TSH Ultra Thyroid Stim Horm 1.19 mcIU/mL (0.34-5.60)
[2023-04-11 07:00] LABS: Creatinine, Serum 1.25 mg/dL (0.67-1.17); eGFR CKD-EPI 64.3 (>60)
[2023-04-11] MEDS: Magnesium Chloride EC 64 mgTAB PO SCH (08:45)
[2023-04-11] MEDS: Aspirin EC 81 mg TAB.EC (enteric coated) PO SCH (08:47)
[2023-04-11] MEDS: Heparin 5000 UNITS/ML 1 mL VIAL SUBCUT SCH ×2 (08:49→17:37)
[2023-04-11] MEDS: Vibegron 75 MG TAB (NF) PO SCH ×2 (11:14→12:54)
[2023-04-12] MEDS: Heparin 5000 UNITS/ML 1 mL VIAL SUBCUT SCH ×3 (01:10→17:27)
[2023-04-12] MEDS ORDERED: Psyllium PAK PO PRN (01:48)
[2023-04-12] MEDS: Vibegron 75 MG TAB (NF) PO SCH (08:22)
[2023-04-12] MEDS: Magnesium Chloride EC 64 mgTAB PO SCH (08:24)
[2023-04-12] MEDS: Aspirin EC 81 mg TAB.EC (enteric coated) PO SCH (08:26)
[2023-04-12] MEDS ORDERED: Sulfur Hexaflouride MICROSPHR 25 MG VIAL ONE (09:53)
[2023-04-13] MEDS: Heparin 5000 UNITS/ML 1 mL VIAL SUBCUT SCH ×3 (01:17→17:03)
[2023-04-13] MEDS: Magnesium Chloride EC 64 mgTAB PO SCH (08:03)
[2023-04-13] MEDS: Vibegron 75 MG TAB (NF) PO SCH (08:05)
[2023-04-13] MEDS: Aspirin EC 81 mg TAB.EC (enteric coated) PO SCH (08:07)
[2023-04-14] MEDS: Heparin 5000 UNITS/ML 1 mL VIAL SUBCUT SCH ×2 (00:03→09:04)
[2023-04-14] MEDS: Aspirin EC 81 mg TAB.EC (enteric coated) PO SCH (09:03)
[2023-04-14] MEDS: Magnesium Chloride EC 64 mgTAB PO SCH (09:03)
[2023-04-14] MEDS: Vibegron 75 MG TAB (NF) PO SCH (09:04)
[2023-04-14] MEDS ORDERED: Saline NASAL SPRAY 0.65% BTL BOTH NARES PRN (09:40)
[2023-04-14 14:04] VITALS: BP 144/79
[2023-04-14] MEDS ORDERED: Oxymetazoline 0.05% NASAL SPR 15 ML BTL BOTH NARES ONE (14:22)
== END 2023-04-14 15:05 | disposition home or self-care (01) | DRG 115 ==
LOC: ED 11:09 → EDHOLD 11:09 → SUATTDRO 20:08 → MEDTELE 04-10 13:41 → SUATTDRO 04-12 07:19
PROVIDERS: ADMIT Internal Medicine; ATTEND Hospitalist

== ENCOUNTER 2023-05-11 00:02 | Inpatient (IN) ==
[2023-05-11 00:54] LABS: Urine Appearance Cloudy; Urine Bilirubin Negative (Negative); Urine Blood Negative (Negative); Urine Color Amber; Urine Glucose Negative (Negative); Urine Ketones Negative (Negative); Urine Nitrite Negative (Negative); Urine Protein Negative (Negative); Urine Specific Gravity 1.014 (1.002-1.030); Urine Urobilinogen Negative (Negative)
[2023-05-11 01:08] LABS: Albumin 4.3 g/dL (3.2-5.2); Albumin/Globulin Ratio 1.3 (1-3); Calcium 8.9 mg/dL (8.6-10.3); Creatinine, Serum 1.67 mg/dL (0.67-1.17); Globulin 3.3 g/dL (2-4); Hematocrit 19.5 % (38-53); Hemoglobin 6.3 g/dL (13.2-16.3); Magnesium 2.1 mg/dL (1.9-2.7); Mean Corpuscular Hemoglobin 27.9 pg (27-33); Mean Corpuscular Hgb Conc 32.6 g/dL (31-36); Mean Corpuscular Volume 85.8 fL (80-97); Potassium 3.9 mmol/L (3.5-5.0); Red Blood Count 2.27 10^6/uL (4.06-5.63); Total Bilirubin 0.1 mg/dL (0.2-1.0); Total Protein 7.6 g/dL (6.4-8.9); White Blood Count 4.6 10^3/uL (3.6-10.2); eGFR CKD-EPI 45.4 (>60)
[2023-05-11 01:20] LABS: ABS Eosinophils 0.1 10^3/uL (0.0-0.5); ABS Lymphocytes 0.9 10^3/uL (1.0-4.8); ABS Monocytes 0.4 10^3/uL (0.0-1.1); ABS Neutrophils 3.1 10^3/uL (1.5-7.6); Eosinophil % 3.2 %; Lymphocyte % 19.8 %; Mean Platelet Volume 8.7 fL (7.5-11.2); Nucleated Red Blood Cells % 0.1 %/100WBC (0.0-0.8); Platelet Count 99 10^3/uL (150-450)
[2023-05-11] MEDS ORDERED: Lactated Ringers 1000 ml BAG 1,000 ML IV ONE (01:31)
[2023-05-11 01:38] LABS: Hematocrit 34.9 % (38-53); Hemoglobin 11.3 g/dL (13.2-16.3)
[2023-05-11 02:01] LABS: High Sensitivity Troponin 1 Hr 6 pg/mL (<20)
[2023-05-11 04:27] LABS: C Reactive Protein 7.31 mg/L (<8.01)
[2023-05-11] MEDS ORDERED: Ondansetron 4 mg VIAL 2 MG/ML 2 ml VIAL IV PRN (04:29)
[2023-05-11] MEDS ORDERED: Senna TAB 8.6 mg TAB PO PRN (04:45)
[2023-05-11 05:13] LABS: PCO2 Arterial 43 mmHg (35-45); PO2 Arterial 76 mmHg (80-100)
[2023-05-11] MEDS ORDERED: [UNRECOGNIZED DRUG - OTHER] PO SCH (09:00)
[2023-05-11] MEDS ORDERED: MAGNESIUM CHLORIDE 71.5 MG PO SCH (09:00)
[2023-05-11] MEDS: Enoxaparin 40 MG/0.4 ML SYR SUBCUT SCH (09:25)
[2023-05-11] MEDS: Aspirin EC 81 mg TAB.EC (enteric coated) PO SCH (09:26)
[2023-05-11] MEDS: IRON CARBONYL VITAMIN C PO SCH (09:53)
[2023-05-11] MEDS: NF:Vibegron 75 MG TAB (NF) PO SCH (09:53)
[2023-05-11 17:39] LABS: ABS Eosinophils 0.3 10^3/uL (0.0-0.5); ABS Lymphocytes 1.6 10^3/uL (1.0-4.8); ABS Monocytes 0.5 10^3/uL (0.0-1.1); ABS Neutrophils 5.7 10^3/uL (1.5-7.6); Eosinophil % 3.2 %; Hematocrit 35.5 % (38-53); Hemoglobin 11.5 g/dL (13.2-16.3); Lymphocyte % 19.2 %; Mean Corpuscular Hgb Conc 32.3 g/dL (31-36); Mean Corpuscular Volume 83.6 fL (80-97); Mean Platelet Volume 8.3 fL (7.5-11.2); Platelet Count 163 10^3/uL (150-450); Red Blood Count 4.25 10^6/uL (4.06-5.63); Red Cell Distribution Width 17.9 % (12-17); White Blood Count 8.1 10^3/uL (3.6-10.2)
[2023-05-11 17:54] LABS: Calcium 9.1 mg/dL (8.6-10.3); Creatinine, Serum 1.24 mg/dL (0.67-1.17); Magnesium 1.9 mg/dL (1.9-2.7); Potassium 4.1 mmol/L (3.5-5.0); eGFR CKD-EPI 64.9 (>60)
[2023-05-11] MEDS: Magnesium Chloride EC 64 mgTAB PO SCH (23:25)
[2023-05-12 06:00] LABS: ABS Basophils 0.1 10^3/uL (0.0-0.1); ABS Eosinophils 0.3 10^3/uL (0.0-0.5); ABS Lymphocytes 1.6 10^3/uL (1.0-4.8); ABS Monocytes 0.6 10^3/uL (0.0-1.1); ABS Neutrophils 4.7 10^3/uL (1.5-7.6); ABS Nucleated RBC 0.01 10^3/ul; Eosinophil % 4.6 %; Hematocrit 33.9 % (38-53); Hemoglobin 11.1 g/dL (13.2-16.3); Lymphocyte % 21.8 %; Mean Corpuscular Hemoglobin 27.5 pg (27-33); Mean Corpuscular Hgb Conc 32.8 g/dL (31-36); Mean Corpuscular Volume 83.8 fL (80-97); Mean Platelet Volume 8.5 fL (7.5-11.2); Nucleated Red Blood Cells % 0.1 %/100WBC (0.0-0.8); Platelet Count 162 10^3/uL (150-450); Red Blood Count 4.05 10^6/uL (4.06-5.63); Red Cell Distribution Width 17.9 % (12-17); White Blood Count 7.3 10^3/uL (3.6-10.2)
[2023-05-12 06:57] LABS: Albumin 3.8 g/dL (3.2-5.2); Albumin/Globulin Ratio 1.6 (1-3); Calcium 8.8 mg/dL (8.6-10.3); Creatinine, Serum 1.18 mg/dL (0.67-1.17); Globulin 2.4 g/dL (2-4); Magnesium 1.7 mg/dL (1.9-2.7); Phosphorus 3.3 mg/dL (2.5-5.0); Potassium 4.2 mmol/L (3.5-5.0); Total Bilirubin 0.3 mg/dL (0.2-1.0); Total Protein 6.2 g/dL (6.4-8.9); eGFR CKD-EPI 68.9 (>60)
[2023-05-12] MEDS ORDERED: hydrALAZINE 20 mg/ml 1 ML Vial IV IV SLOW PU PRN (09:23)
[2023-05-12] MEDS: Enoxaparin 40 MG/0.4 ML SYR SUBCUT SCH (09:51)
[2023-05-12] MEDS: Aspirin EC 81 mg TAB.EC (enteric coated) PO SCH (09:51)
[2023-05-12] MEDS: IRON CARBONYL VITAMIN C PO SCH (09:53)
[2023-05-12] MEDS: Magnesium Chloride EC 64 mgTAB PO SCH ×3 (09:53→22:38)
[2023-05-12] MEDS: NF:Vibegron 75 MG TAB (NF) PO SCH (09:54)
[2023-05-12 11:12] LABS: Urine Appearance Clear; Urine Bilirubin Negative (Negative); Urine Blood Negative (Negative); Urine Color Yellow; Urine Glucose Negative (Negative); Urine Ketones Negative (Negative); Urine Nitrite Negative (Negative); Urine Protein Negative (Negative); Urine Specific Gravity 1.019 (1.002-1.030); Urine Urobilinogen Negative (Negative)
[2023-05-12 11:22] LABS: Urine Bacteria Absent (Absent); Urine Red Blood Cell Trace(0-2/hpf) (Absent); Urine Squamous Epithelial Cell Present (Absent); Urine White Blood Cell Trace(0-5/hpf) (Absent)
[2023-05-12] MEDS: hydrALAZINE 20 mg/ml 1 ML Vial IV IV SLOW PU PRN ×2 (14:14→23:39)
[2023-05-12] MEDS: Nystatin TOP POWDER 15 GM BTL TOPICAL SCH ×2 (14:15→22:40)
[2023-05-13 06:11] LABS: ABS Eosinophils 0.3 10^3/uL (0.0-0.5); ABS Lymphocytes 1.5 10^3/uL (1.0-4.8); ABS Monocytes 0.7 10^3/uL (0.0-1.1); ABS Neutrophils 4.9 10^3/uL (1.5-7.6); Eosinophil % 4.4 %; Hematocrit 34.9 % (38-53); Hemoglobin 11.6 g/dL (13.2-16.3); Lymphocyte % 19.9 %; Mean Corpuscular Hemoglobin 27.6 pg (27-33); Mean Corpuscular Hgb Conc 33.2 g/dL (31-36); Mean Corpuscular Volume 83.2 fL (80-97); Mean Platelet Volume 8.7 fL (7.5-11.2); Platelet Count 171 10^3/uL (150-450); Red Cell Distribution Width 17.5 % (12-17); White Blood Count 7.4 10^3/uL (3.6-10.2)
[2023-05-13 06:13] LABS: Calcium 9.3 mg/dL (8.6-10.3); Creatinine, Serum 1.23 mg/dL (0.67-1.17); Magnesium 1.7 mg/dL (1.9-2.7); eGFR CKD-EPI 65.6 (>60)
[2023-05-13] MEDS: hydrALAZINE 20 mg/ml 1 ML Vial IV IV SLOW PU PRN (06:29)
[2023-05-13] MEDS: Aspirin EC 81 mg TAB.EC (enteric coated) PO SCH (08:10)
[2023-05-13] MEDS: Magnesium Chloride EC 64 mgTAB PO SCH ×3 (08:11→21:22)
[2023-05-13] MEDS: IRON CARBONYL VITAMIN C PO SCH (08:12)
[2023-05-13] MEDS: Nystatin TOP POWDER 15 GM BTL TOPICAL SCH ×3 (08:13→21:23)
[2023-05-13] MEDS: NF:Vibegron 75 MG TAB (NF) PO SCH (08:13)
[2023-05-13] MEDS: Enoxaparin 40 MG/0.4 ML SYR SUBCUT SCH (08:13)
[2023-05-14] MEDS: Magnesium Chloride EC 64 mgTAB PO SCH ×3 (08:55→22:04)
[2023-05-14] MEDS: Aspirin EC 81 mg TAB.EC (enteric coated) PO SCH (08:55)
[2023-05-14] MEDS: Enoxaparin 40 MG/0.4 ML SYR SUBCUT SCH (08:59)
[2023-05-14] MEDS: NF:Vibegron 75 MG TAB (NF) PO SCH (10:43)
[2023-05-14] MEDS: IRON CARBONYL VITAMIN C PO SCH (10:43)
[2023-05-14] MEDS: Nystatin TOP POWDER 15 GM BTL TOPICAL SCH ×3 (11:10→22:09)
[2023-05-14 17:04] LABS: Urine Appearance Cloudy; Urine Bilirubin Negative (Negative); Urine Blood Negative (Negative); Urine Color Yellow; Urine Glucose Negative (Negative); Urine Ketones Negative (Negative); Urine Nitrite Negative (Negative); Urine Protein Negative (Negative); Urine Specific Gravity 1.015 (1.002-1.030); Urine Urobilinogen Negative (Negative)
[2023-05-14 17:22] LABS: Urine Bacteria 2+ (Absent); Urine Red Blood Cell 2+(6-10/hpf) (Absent); Urine Squamous Epithelial Cell Present (Absent); Urine White Blood Cell 3+(>20/hpf) (Absent)
[2023-05-14] MEDS ORDERED: GENTAMICIN SCH (18:00)
[2023-05-14] MEDS: NS 0.9% IVPB SCH (23:11)
[2023-05-14] MEDS: GENTAMICIN ADULT IVPB SCH (23:11)
[2023-05-15] MEDS: Nystatin TOP POWDER 15 GM BTL TOPICAL SCH ×3 (07:59→22:31)
[2023-05-15 09:26] LABS: Calcium 8.9 mg/dL (8.6-10.3); Creatinine, Serum 1.11 mg/dL (0.67-1.17); Potassium 4.3 mmol/L (3.5-5.0); eGFR CKD-EPI 74.2 (>60)
[2023-05-15] MEDS: Enoxaparin 40 MG/0.4 ML SYR SUBCUT SCH (09:49)
[2023-05-15] MEDS: Aspirin EC 81 mg TAB.EC (enteric coated) PO SCH (09:49)
[2023-05-15] MEDS: Magnesium Chloride EC 64 mgTAB PO SCH ×3 (09:51→22:18)
[2023-05-15] MEDS: IRON CARBONYL VITAMIN C PO SCH (09:51)
[2023-05-15] MEDS: NF:Vibegron 75 MG TAB (NF) PO SCH (09:52)
[2023-05-16] MEDS: Enoxaparin 40 MG/0.4 ML SYR SUBCUT SCH (08:43)
[2023-05-16] MEDS: Aspirin EC 81 mg TAB.EC (enteric coated) PO SCH (08:44)
[2023-05-16] MEDS: Magnesium Chloride EC 64 mgTAB PO SCH ×3 (08:45→21:31)
[2023-05-16] MEDS: NF:Vibegron 75 MG TAB (NF) PO SCH (08:46)
[2023-05-16] MEDS: Nystatin TOP POWDER 15 GM BTL TOPICAL SCH ×3 (08:46→21:45)
[2023-05-16] MEDS: IRON CARBONYL VITAMIN C PO SCH (08:46)
[2023-05-16 08:59] LABS: ABS Eosinophils 0.3 10^3/uL (0.0-0.5); ABS Lymphocytes 1.3 10^3/uL (1.0-4.8); ABS Monocytes 0.6 10^3/uL (0.0-1.1); ABS Neutrophils 5.6 10^3/uL (1.5-7.6); Eosinophil % 4.3 %; Hematocrit 35.9 % (38-53); Hemoglobin 11.8 g/dL (13.2-16.3); Lymphocyte % 16.2 %; Mean Corpuscular Hemoglobin 27.5 pg (27-33); Mean Corpuscular Volume 83.4 fL (80-97); Mean Platelet Volume 8.5 fL (7.5-11.2); Platelet Count 162 10^3/uL (150-450); Red Cell Distribution Width 17.8 % (12-17); White Blood Count 7.8 10^3/uL (3.6-10.2)
[2023-05-16 09:11] LABS: Calcium 9.1 mg/dL (8.6-10.3); Creatinine, Serum 1.13 mg/dL (0.67-1.17); Magnesium 1.9 mg/dL (1.9-2.7); Potassium 4.3 mmol/L (3.5-5.0); eGFR CKD-EPI 72.6 (>60)
[2023-05-16] MEDS ORDERED: Cefepime 1 GM in Dextrose 1 GM/50 ML BAG IV SCH (14:00)
[2023-05-17] MEDS: GENTAMICIN ADULT IVPB SCH (00:06)
[2023-05-17] MEDS: NS 0.9% IVPB SCH (00:06)
[2023-05-17 05:52] LABS: ABS Eosinophils 0.4 10^3/uL (0.0-0.5); ABS Lymphocytes 1.2 10^3/uL (1.0-4.8); ABS Monocytes 0.6 10^3/uL (0.0-1.1); ABS Neutrophils 4.6 10^3/uL (1.5-7.6); ABS Nucleated RBC 0.01 10^3/ul; Eosinophil % 5.2 %; Hematocrit 34.1 % (38-53); Hemoglobin 11.1 g/dL (13.2-16.3); Lymphocyte % 17.7 %; Mean Corpuscular Hemoglobin 27.5 pg (27-33); Mean Corpuscular Hgb Conc 32.5 g/dL (31-36); Mean Corpuscular Volume 84.5 fL (80-97); Mean Platelet Volume 8.5 fL (7.5-11.2); Nucleated Red Blood Cells % 0.1 %/100WBC (0.0-0.8); Platelet Count 147 10^3/uL (150-450); Red Blood Count 4.03 10^6/uL (4.06-5.63); White Blood Count 6.7 10^3/uL (3.6-10.2)
[2023-05-17 06:07] LABS: Calcium 8.7 mg/dL (8.6-10.3); Creatinine, Serum 1.33 mg/dL (0.67-1.17); eGFR CKD-EPI 59.7 (>60)
[2023-05-17] MEDS: Nystatin TOP POWDER 15 GM BTL TOPICAL SCH ×3 (11:00→23:18)
[2023-05-17] MEDS: Enoxaparin 40 MG/0.4 ML SYR SUBCUT SCH (11:25)
[2023-05-17] MEDS: Aspirin EC 81 mg TAB.EC (enteric coated) PO SCH (11:26)
[2023-05-17] MEDS: Magnesium Chloride EC 64 mgTAB PO SCH ×3 (11:28→23:17)
[2023-05-17] MEDS: IRON CARBONYL VITAMIN C PO SCH (11:29)
[2023-05-17] MEDS: NF:Vibegron 75 MG TAB (NF) PO SCH (11:29)
[2023-05-18 05:09] VITALS: BP 130/66
[2023-05-18 05:52] LABS: ABS Basophils 0.1 10^3/uL (0.0-0.1); ABS Eosinophils 0.3 10^3/uL (0.0-0.5); ABS Lymphocytes 1.4 10^3/uL (1.0-4.8); ABS Monocytes 0.6 10^3/uL (0.0-1.1); Eosinophil % 3.8 %; Hematocrit 33.3 % (38-53); Hemoglobin 11.1 g/dL (13.2-16.3); Lymphocyte % 18.6 %; Mean Corpuscular Hemoglobin 27.7 pg (27-33); Mean Corpuscular Hgb Conc 33.2 g/dL (31-36); Mean Corpuscular Volume 83.6 fL (80-97); Mean Platelet Volume 8.5 fL (7.5-11.2); Platelet Count 159 10^3/uL (150-450); Red Blood Count 3.99 10^6/uL (4.06-5.63); White Blood Count 7.3 10^3/uL (3.6-10.2)
[2023-05-18 06:24] LABS: Calcium 8.9 mg/dL (8.6-10.3); Creatinine, Serum 1.3 mg/dL (0.67-1.17); Potassium 4.1 mmol/L (3.5-5.0); eGFR CKD-EPI 61.3 (>60)
[2023-05-18] MEDS: Aspirin EC 81 mg TAB.EC (enteric coated) PO SCH (08:46)
[2023-05-18] MEDS: Magnesium Chloride EC 64 mgTAB PO SCH (08:47)
[2023-05-18] MEDS: Enoxaparin 40 MG/0.4 ML SYR SUBCUT SCH (08:47)
[2023-05-18] MEDS: IRON CARBONYL VITAMIN C PO SCH (08:57)
[2023-05-18] MEDS: NF:Vibegron 75 MG TAB (NF) PO SCH (08:57)
== END 2023-05-18 10:07 | DRG 71 ==
LOC: ED 00:02 → SUATTDRO 04:29 → EDHOLD 04:29 → MED 11:18
PROVIDERS: ADMIT Hospitalist; ATTEND Internal Medicine